=== PATIENT | female | born 1930 | race Caucasian/White ===

== ENCOUNTER 2018-08-11 10:00 | Emergency (ER) | payer MEDICARE ==
--- OUTSIDE RECORDS SUMMARY | 2018-08-11 10:44 | XMS REPORT ---
:1930 External Reference #:[id number] Author Organization [employer] Address [address] [place] [address] Phone [phone] Care Team Providers Name Role Phone Basilia Vega MD Primary Care Physician Unavailable Payers Type Date Identification Numbers Payment Provider Subscriber Medicare Primary Effective: Policy Number: Medicare Elizabeth Rodriguez 1995 [id number] PayID: [id number] [facility] [address] [place] [address] Problems Description No Information Family History Date Family Member(s) Problem(s) Comments Father due to Cancer () Onset: (age 57 Years) Father Cancer : (age 65 Years) Mother due to Pulmonary Embolism (PE) Siblings None Social History Type Date Description Comments Marital Status Lives With Alone Cigarette Use Former Cigarette Smoker 5-10 Cigarettes Daily ETOH Use Denies alcohol use Smoking Patient is a former smoker Quit 1979 Recreational Drug Use Denies Drug Use Daily Caffeine Consumes on average 12oz of iced tea per day Exercise Type/Frequency Does not exercise Allergies, Adverse Reactions, Alerts Date Description Reaction Status Severity Comments 06/14/2018 Sulfa Antibiotics active Medications Medication Date Status Form Strength Qnty SIG Indications Ordering Provider Midodrine HCL / Active Tablets 5mg 1 by Unknown 0000 mouth once times a day Simvastatin / Active Tablets 20mg 1 by Unknown 0000 mouth every day Metoprolol Succinate / Active Tablets 25mg 1 by Unknown ER 0000 ER 24HR mouth every day Hydrochlorothiazide / Active Tablets 25mg 1 by Unknown 0000 mouth every day Aspirin Low Dose / Active Tablets 81mg [address] mouth every day 1000 Unit / Active Tablets 400Unit 1 tab Unknown 0000 by mouth daily Adeds / Active Soft Gels 1 by Unknown 0000 mouth every day twice daily Vital Signs Date Vital Result Comment 07/13/2018 Height 63 inches 5'3" Weight 186.00 lb with shoes on Heart Rate 96 /min BP Systolic 120 mmHg BP Diastolic 60 mmHg BMI (Body Mass Index) 32.9 kg/m2 Ejection Fraction 55% Echocardiogram 01/23/2018 Results Description No Information Procedures Date CPT Code Description Status 07/13/2018 29164 EKG Tracing & Interpretation Completed Plan of Care 07/13/2018 - Carmen Delarosa M.D.I25.10 [facility]scl heart disease of [place] coronary artery w/o ang pctrsFollow up:one yr ovE78.4 Other 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
--- OUTSIDE RECORDS SUMMARY | 2018-08-11 10:44 | XMS REPORT | Continuity of Care Document ---
:1930 External Reference #:[id number] Author Name Lincoln Goetz M.D. Address [address] [place] [address] Care Team Providers Name Role Phone Basilia Vega M.D. Primary Care Physician Unavailable Payers Type Date Identification Numbers Payment Provider Subscriber Policy Number: [id number] Medicare - [facility] Elizabeth Rodriguez PayID: [id number] [address] [place] [address] Policy Number: [id number] [facility] Elizabeth Rodriguez PayID: [id number] [address] [place] [address] Advance Directives Description No Information Available Problems Date Description Provider Status Onset: Carcinoma of breast Active Family History Date Family Member(s) Problem(s) Comments Father Breast Cancer Mother Aneurysm Social History Type Date Description Comments Sex Unknown Marital Status Legal 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 day Metoprolol 0 Active Tablets 25mg Unknown Tartrate 000 Simvastatin Active Tablets 20mg Unknown 000 Ciclopirox Active Cream 0.77% Unknown Olamine 000 Midodrine HCL Active Tablets 5mg Take 1 Unknown 000 Tablet By Mouth Every Day Vitamin D2 Active Tablets 400Unit Unknown 000 Aspirin Active Chewtabs 81mg Unknown 000 Immunizations Description No Information Available Vital Signs Description No Information Available Results Description No Information Available Procedures Date Code Description Status 03/30/2018 47024 New Patient Comprehensive Exam Completed Encounters Description No Information Available Plan of Treatment 08/04/2018 - Lincoln Goetz M.D.H26.493 Other secondary cataract, bilateralComments:Smoking can increase the risk of developing or worsening any eye related disease, as well as affect your overall health. If you are a smoker , we strongly recommend that you quit.If you are not a smoker, we strongly recommend that you do not start. There is clouding in the sac that holds your artificial lens in your right eye. When your vision bothers you, we will do a laser treatment here in the office to improve your vision. There is clouding in the sac that holds your artificial lens in your left eye. We will schedule you an appointment for the YAG Capsulotomy laser with Dr. Goetz. Please read the pamphlet that has been printed out for you. We recommend you bring someone to drive you home.Follow up:Schedule YAG [id number] Nonexudative age- related macular degeneration, bilateral, early dry stageComments:You have Macular Degeneration. Check your Amsler Grid, with each eye separately, and take the AREDS II formula vitamins. If you notice any changes in your vision, please call the office and schedule anappointment to see any of the doctors here.Z96.1 Presence of intraocular lensComments:The artificial lens implants in both eyes appear to be stable at this time.
[2018-08-11] MEDS ORDERED: methylPREDNISolone 125 MG* 2 ML VIAL IV ONE (11:11)
[2018-08-11] MEDS ORDERED: Famotidine IV* 10 MG/ML 2 ML (20 mg) IV SLOW PU ONE (11:11)
[2018-08-11] MEDS ORDERED: diPHENhydraMINE IV* 25 MG in NS 0.9% 50 ML* 50 ML IVPB ONE (11:11)
--- NOTE | 2018-08-11 11:13 | ED ---
Skin Complaint - HPI Summary HPI Summary: This patient is an 87 year old F presenting to [facility] accompanied by her daughter with a chief complaint of facial edema since 08/10/18 AM. She endorses chronic facial rash; she went to the digital media manager 08/09/18, who took 2x biopsies to r/o CA, and sx onset the next day. Pt also complains of tooth pain/ infection. She notes that yesterday sx included a more pronounced facial droop, but there is still droop present today. Pt rx ABx for dental sx. She denies DIAMOND, double vision, blurred vision, CP, and SOB. She endorses anxiety about her sx, and chronic right leg edema. Pt had her flu vaccine 08/09/18. - History of Current Complaint Chief Complaint: EDGeneral Time Seen by Provider: 08/11/18 10:28 Stated Complaint: FACIAL SWELLING POSSIBEL TOOTH INFECTION Hx Obtained From: Patient, Family/Resident Care Aide Onset/Duration: Started Days Ago, Still Present Skin Exposure Onset/Duration: Days Ago Timing: Constant Onset Severity: Mild Current Severity: Mild Pain Intensity: 0 Pain Scale Used: 0-10 Numeric Skin Location: Discrete, Face Character: Swelling Aggravating Symptom(s): Nothing Alleviating Symptom(s): Nothing Associated Signs & Symptoms: Rash - chronic facial rash Related History: Recent change in medication - ABx, Other: - biopsy of face 2 days ago - Allergy/Home Medications Allergies/Adverse Reactions: Allergies Allergy/AdvReac Type Severity Reaction Status Date / Time No Known Allergies Allergy Verified 08/11/18 10:29 Home Medications: Home Medications Aspirin 81 mg PO DAILY 08/11/18 [History Confirmed 08/11/18] Hydrochlorothiazide TAB* [Hydrodiuril TAB*] 25 mg PO DAILY 08/11/18 [History Confirmed 08/11/18] Metoprolol Tartrate 25 mg PO DAILY 08/11/18 [History Confirmed 08/11/18] Midodrine HCl 5 mg PO DAILY 08/11/18 [History Confirmed 08/11/18] Simvastatin 20 mg PO DAILY 08/11/18 [History Confirmed 08/11/18] Vit A/Vit C/Vit E/Zinc/Copper [Preservision Areds Softgel] 1 each PO DAILY 08/11 [History Confirmed 08/11/18] PMH/Surg Hx/FS Hx/Imm Hx Endocrine/Hematology History: Denies: Hx Sickle Cell Disease GI History: Denies: Hx Ileostomy History: Denies: Hx Dialysis Sensory History: Reports: Hx Cataracts, Hx Contacts or Glasses, Hx Macular Degeneration Denies: Hx Legally Blind, Hx Deafness Opthamlomology History: Reports: Hx Cataracts, Hx Contacts or Glasses, Hx Macular Degeneration Denies: Hx Legally Blind EENT History: Denies: Hx Deafness Neurological History: Denies: Hx Developmental Delay Psychiatric History: Denies: Hx Autism Infectious Disease History: No Infectious Disease History: Denies: Traveled Outside the [place] in Last 30 Days - Family History Known Family History: Negative: Blood Disorder - Social History Occupation: Retired Lives: With Family Alcohol Use: None Substance Use Type: Reports: None Smoking Status (MU): Former Smoker Review of Systems Negative: Fever, Chills Negative: Blurred Vision, Diplopia Positive: Dental Pain. Negative: Sore Throat, Ear Ache Negative: Chest Pain Negative: Shortness Of Breath Negative: Vomiting, Diarrhea Negative: dysuria, hematuria Positive: Edema - RLE, right face Positive: Rash - face Neurological: Other - NEGATIVE: Dizziness, lightheadedness Positive: Anxious All Other Systems Reviewed And Are Negative: No Physical Exam - Summary Physical Exam Summary: Appearance: Alert, conversive, nontoxic appearing Skin: Warm, dry, no mottling, no rashes, no contusions. Right sided face swelling, a few abrasions to cheeks bilaterally. HEENT: EOMI, PERRL, moist mucous membranes Neck: No masses on the neck, supple Respiratory: Clear to auscultation, breath sounds present, no rales, no rhonchi , no wheezes Cardiovascular: RRR, pulses are symmetrical in both lower and upper extremities Abdomen: Soft, non-tender Bowel Sounds: Present Musculoskeletal: No CVA tenderness, no obvious deformity, moving all extremities in a grossly normal manner, 1+ RLE pitting edema Neurological: A&Ox3, CN II-XII Intact, moving all extremities symmetrically Psychiatric: Normal affect and mood Triage Information Reviewed: Yes Vital Signs On Initial Exam: Initial Vitals Temp Pulse Resp BP Pulse Ox 98.7 F 91 18 127/64 98 08/11/18 10:08 08/11/18 10:08 08/11/18 10:08 08/11/18 10:08 08/11/18 10:08 Vital Signs Reviewed: Yes - Antoinette Coma Scale Best Eye Response: 4 - Spontaneous Best Motor Response: 6 - Obeys Commands Best Verbal Response: 5 - Oriented Coma Scale Total: 15 Diagnostics - Vital Signs Vital Signs Temp Pulse Resp BP Pulse Ox 08/11/18 10:08 98.7 F 91 18 127/64 98 - Laboratory Result Diagrams: 08/11/18 11:36 08/11/18 11:36 Lab Statement: Any lab studies that have been ordered have been reviewed, and results considered in the medical decision making process. - Radiology CXR Xray Interpretation: No Acute Changes Radiology Interpretation Completed By: Radiologist - Low lung volumes. No active cardiopulmonary disease. Dr. Mayberry has reviewed this report. - CT Brain CT Interpretation: No Acute Changes CT Interpretation Completed By: Radiologist - No acute intracraial mass or hemorrhage is noted. Dr. Mayberry has reviewed this report. Re-Evaluation - Re-Evaluation First Eval Re-Evaluation Time: 11:30 Change: Worse Comment: Per RN Soco, s/p benadryl and solu-medrol administration, pt became dizzy, started to have difficulty with speech. Instructed Soco to dim the lights in the pt room. Second Eval Re-Evaluation Time: 13:06 Change: Improved Comment: Facial swelling and droop significantly reduced; droop likely secondary to swelling. Course/Dx - Course Course Of Treatment: An 87-year-old F presents to the ED with a CC of facial swelling for 1 day. (+) chronic facial rash, right sided facial droop and edema , dental pain, anxiety. (-) CP, SOB, DIAMOND, blurred vision, double vision, urinary sx, dizziness, and lightheadedness. bilateral face biopsies 2 days ago by digital media manager to r/o CA, next day onset right sided facial swelling and facial droop. A CXR reveals low lung volumes but is otherwise (-). A CT brain was (-) . In the ED course, pt was given benadryl, pepcid, and solu-medrol. Pt labs show low RBC, high mono %, high glucose, low total bilirubin, high total protein. - Diagnoses Provider Diagnoses: Allergic reaction, Dental disease Discharge - Sign-Out/Discharge Documenting (check all that apply): Patient Departure - discharge - Discharge Plan Condition: Stable Disposition: HOME Prescriptions: Famotidine [Pepcid] 20 mg PO DAILY #14 tab MDD 1 predniSONE TAB* [Deltasone 20 MG TAB*] 60 mg PO DAILY #12 tab MDD 3 Patient Education Materials: Toothache (ED), General Allergic Reaction (ED) Referrals: Basilia Vega MD [Primary Care Provider] - Additional Instructions: Continue to take the clindamycin as previously instructed. take the prednisone , benadryl and pepcid as instructed. return if worse or any new symptoms. Follow up with your doctor by thursday. - Billing Disposition and Condition Condition: STABLE Disposition: Home - Attestation Statements Document Initiated by Jesica: Yes Documenting Scribe: Romain Rice Provider For Whom Jesica is Documenting (Include Credential): Dr. Laura Mayberry MD Scribe Attestation: Romain Fraire scribed for Dr. Laura Mayberry MD on 08/11/18 at 1902. Scribe Documentation Reviewed: Yes Provider Attestation: The documentation as recorded by the Romain pederson accurately reflects the service I personally performed and the decisions made by me, Dr. Laura Mayberry MD
[2018-08-11] MEDS ORDERED: diPHENhydraMINE IV* 50 MG/ML 1 ml VIAL (BENADRYL) IV ONE (11:23)
[2018-08-11 11:52] LABS: ABS Basophils 0 10^3/ul (0-0.2); ABS Eosinophils 0.1 10^3/ul (0-0.6); ABS Lymphocytes 1.6 10^3/ul (1.0-4.8); ABS Monocytes 0.5 10^3/ul (0-0.8); ABS Neutrophils 3.7 10^3/ul (1.5-7.7); ABS Nucleated RBC 0 10^3/ul; Eosinophil % 1.5 % (0-6); Hematocrit 36 % (35-47); Mean Corpuscular HGB Conc 33 g/dl (31-36); Mean Corpuscular Hemoglobin 30 pg (27-31); Mean Corpuscular Volume 91 fL (80-97); Mean Platelet Volume 8.2 um3 (7.4-10.4); Nucleated Red Blood Cells % 0; Platelet Count 199 10^3/ul (150-450); Red Blood Count 3.99 10^6/ul (4.00-5.40); Red Cell Distribution Width 13 % (10.5-15); White Blood Count 5.9 10^3/ul (3.5-10.8)
[2018-08-11 12:11] LABS: EGFR Non-African American 55.8 (>60)
--- NOTE | 2018-08-11 12:20 | RAD ---
Indication: Right-sided facial droop. CT of the brain performed without IV contrast. Ventricular structures are midline. No midline shift is noted. The extra-axial spaces are unremarkable. There is no evidence of intracranial mass or hemorrhage. No other high or low density lesions are identified. Mastoid air cells and paranasal sinuses are unremarkable. IMPRESSION: No intracranial mass or hemorrhage is noted.
--- NOTE | 2018-08-11 12:31 | RAD ---
HISTORY: cough COMPARISONS: None VIEWS: 2 : frontal AP view of the chest at 12:15 PM FINDINGS: LINES AND TUBES: None. CARDIOMEDIASTINAL SILHOUETTE: The cardiomediastinal silhouette is normal for portable technique. PLEURA: The costophrenic angles are sharp. No pleural abnormalities are noted. LUNG PARENCHYMA: The lung volumes are low. The lungs are clear accounting for the phase of respiration. ABDOMEN: The upper abdomen is clear. There is no subphrenic gas. BONES AND SOFT TISSUES: The patient is status post median sternotomy. IMPRESSION: LOW LUNG VOLUMES. NO ACTIVE CARDIOPULMONARY DISEASE.
[2018-08-11 14:18] VITALS: BP 146/93
== END 2018-08-11 14:20 | disposition home or self-care (01) ==
LOC: ED 10:00
DX: T78.40XA Allergy, unspecified, initial encounter (principal); X58.XXXA Exposure to other specified factors, initial encounter; R21 Rash and other nonspecific skin eruption; K05.6 Periodontal disease, unspecified; Z79.82 Long term (current) use of aspirin; Z87.891 Personal history of nicotine dependence
CPT/HCPCS: 36415; 70450; 71045; 80053; 85025; 96374; 96375; 99284; J1200; J2930

== ENCOUNTER 2019-01-09 11:39 | Inpatient (IN) | payer MEDICARE, MEDICAID ==
[2019-01-09] MEDS ORDERED: NS 0.9% 1000 ML** 1,000 ML IV ONE (13:38)
[2019-01-09] MEDS ORDERED: Diltiazem IV* 5 MG/ML 5 ML VIAL (for loading dose/IV Push) (25 MG) IV SLOW PU ONE (13:38)
[2019-01-09] MEDS ORDERED: Furosemide IV* 10 MG/ML 10 ML VIAL (100 MG) IV ONE (13:49)
--- NOTE | 2019-01-09 13:52 | ED ---
HPI Cardiac - HPI Summary HPI Summary: Patient is an 88 y/o female who presents to the ED c/o LE edema. For the past 10 days, patient c/o sore throat, SOB, LE edema, and generalized weakness. These symptoms have been constant. Patient denies any fever or pain. She is a patient of Dr. Delarosa. PMHx HTN, CT, triple bypass. Patient takes daily ASA. - History of Current Complaint Chief Complaint: EDGeneral Stated Complaint: TROUBLE BREATHING, DOESNT FEEL GOOD PER PT DAUGHTE Time Seen by Provider: 01/09/19 13:40 Hx Obtained From: Patient, Family/Manager Ct - Daughter Onset/Duration: Started Days Ago - 10, Still Present Timing: Constant Current Severity: None Pain Intensity: 0 Pain Scale Used: 0-10 Numeric Aggravating Factor(s): Nothing Alleviating Factor(s): Nothing Associated Signs and Symptoms: Positive: Weakness, Shortness of Breath, Edema - Allergy/Home Medications Allergies/Adverse Reactions: Allergies Allergy/AdvReac Type Severity Reaction Status Date / Time No Known Allergies Allergy Verified 01/09/19 11:59 PMH/Surg Hx/FS Hx/Imm Hx Endocrine/Hematology History: Denies: Hx Sickle Cell Disease Cardiovascular History: Reports: Hx Hypertension, Hx Myocardial Infarction - 1991 GI History: Denies: Hx Ileostomy History: Denies: Hx Dialysis Sensory History: Reports: Hx Cataracts, Hx Contacts or Glasses, Hx Macular Degeneration Denies: Hx Legally Blind, Hx Deafness Opthamlomology History: Reports: Hx Cataracts, Hx Contacts or Glasses, Hx Macular Degeneration Denies: Hx Legally Blind Neurological History: Denies: Hx Developmental Delay Psychiatric History: Denies: Hx Autism - Cancer History Cancer Type, Location and Year: breast cancer - Surgical History Surgery Procedure, Year, and Place: left knee replacement, cholecystectomy, triple bypass Infectious Disease History: No Infectious Disease History: Denies: Traveled Outside the [place] in Last 30 Days - Family History Known Family History: Negative: Blood Disorder - Social History Alcohol Use: None Hx Substance Use: No Substance Use Type: Reports: None Hx Tobacco Use: Yes Smoking Status (MU): Former Smoker Review of Systems Negative: Fever Positive: Sore Throat Positive: Shortness Of Breath Positive: Edema - LE Positive: Weakness - generalized All Other Systems Reviewed And Are Negative: Yes Physical Exam - Summary Physical Exam Summary: Appearance: Well appearing, no pain distress Skin: warm, dry, reflects adequate perfusion Head/face: normal Eyes: EOMI, ROYAL ENT: mucous membranes moist Neck: supple, non-tender, left-sided JVD Respiratory: CTA, breath sounds present Cardiovascular: tachycardic with irregular rhythm, pulses symmetrical, 2+ pitting edema of LLE, 3+ pitting edema of RLE, sternotomy scar Abdomen: non-tender, soft Bowel Sounds: present Musculoskeletal: strength/ROM intact, significant kyphosis Neuro: normal, sensory motor intact, A&Ox3 Triage Information Reviewed: Yes Vital Signs On Initial Exam: Initial Vitals Temp Pulse Resp BP Pulse Ox 96.9 F 114 20 129/91 96 01/09/19 11:54 01/09/19 11:54 01/09/19 11:54 01/09/19 11:54 01/09/19 11:54 Vital Signs Reviewed: Yes Diagnostics - Vital Signs Vital Signs Temp Pulse Resp BP Pulse Ox 01/09/19 11:54 96.9 F 114 20 129/91 96 - Laboratory Result Diagrams: 01/09/19 13:59 01/09/19 13:59 Lab Statement: Any lab studies that have been ordered have been reviewed, and results considered in the medical decision making process. - Radiology CXR Radiology Interpretation Completed By: Radiologist Summary of Radiographic Findings: COPD. SMALL BILATERAL PLEURAL EFFUSIONS WITH BIBASILAR ATELECTASIS VERSUS CONSOLIDATION. ED physician reviewed radiology report. - EKG 13:33 Cardiac Rate: Other Rate - Rapid Afib - 113 bpm EKG Rhythm: Atrial Fibrillation ST Segment: Non-Specific Summary of EKG Findings: Nl axis Disposition - Course Course Of Treatment: Nurse's notes reviewed. Patient with a history of A. fib who has presented in rapid A. fib with increasing swelling her lower extremities. She also has bilateral pleural effusions consistent with CHF. This is supported by a BNP of greater than 600. She was diuresed here in was ordered diltiazem for rate control however her heart rate came down into the 80s and 90s spontaneously. She'll be admitted for further via the hospitalist service. - Differential Dx - Cardiopulmonary Differential Diagnoses - Cardiopulmonary: Atrial Fibrillation, Atrial Flutter, CAD, CHF, Exacerbation Of COPD, Influenza, Lower Resp Infection - Diagnoses Provider Diagnoses: Rapid atrial fibrillation, Acute CHF (congestive heart failure) - Physician Notifications Discussed Care Of Patient With: Irene Mays Time Discussed With Above Provider: 14:37 Instructed by Provider To: Admit As Inpatient Discharge - Sign-Out/Discharge Documenting (check all that apply): Patient Departure - Admit Patient Received Moderate/Deep Sedation with Procedure: No - Discharge Plan Condition: Fair Disposition: ADMITTED TO [facility] Referrals: Basilia Vega MD [Primary Care Provider] - - Billing Disposition and Condition Condition: FAIR Disposition: Admitted to [facility] - Attestation Statements Document Initiated by Scribe: Yes Documenting Scribe: Shalini Angelo Provider For Whom Scribe is Documenting (Include Credential): Sumit Penaloza MD Scribe Attestation: Shalini Fraire scribed for Sumit Penaloza MD on 01/09/19 at 1532. Scribe Documentation Reviewed: Yes Provider Attestation: The documentation as recorded by the Shalini pederson accurately reflects the service I personally performed and the decisions made by Sumit pemberton MD Status of Scribe Document: Viewed
[2019-01-09 14:08] LABS: ABS Basophils 0.1 10^3/ul (0-0.2); ABS Eosinophils 0 10^3/ul (0-0.6); ABS Lymphocytes 1.6 10^3/ul (1.0-4.8); ABS Monocytes 0.4 10^3/ul (0-0.8); ABS Neutrophils 3.3 10^3/ul (1.5-7.7); ABS Nucleated RBC 0 10^3/ul; Eosinophil % 0.8 %; Hematocrit 38 % (33-41); Hemoglobin 12.2 g/dL (12.0-16.0); Lymphocyte % 29.4 %; Mean Corpuscular HGB Conc 33 g/dL (31-36); Mean Corpuscular Hemoglobin 29 pg (27-31); Mean Corpuscular Volume 89 fL (80-97); Mean Platelet Volume 9.1 fL (7.4-10.4); Nucleated Red Blood Cells % 0.1; Platelet Count 202 10^3/uL (150-450); Red Cell Distribution Width 14 % (10.5-15); White Blood Count 5.4 10^3/uL (3.5-10.8)
[2019-01-09 14:24] LABS: Albumin 4.3 g/dL (3.2-5.2); Albumin/Globulin Ratio 2.2 (1-3); BUN/Creatinine Ratio 19.8 (8-20); C Reactive Protein 1.41 mg/L (<8.01); Calcium 9.6 mg/dL (8.6-10.3); EGFR African American 53.5 (>60); EGFR Non-African American 44.2 (>60); Potassium 3.7 mmol/L (3.5-5.0); Total Bilirubin 1.4 mg/dL (0.2-1.0); Total Protein 6.3 g/dL (6.4-8.9)
[2019-01-09 14:26] LABS: Troponin I 0.01 ng/mL (<0.04)
[2019-01-09 14:27] LABS: Influenza A Molecular NEGATIVE (Negative); Influenza B Molecular NEGATIVE (Negative)
[2019-01-09 15:45] LABS: Magnesium 2.2 mg/dL (1.9-2.7)
[2019-01-09] MEDS ORDERED: Acetaminophen TAB* 325 MG PO PRN (16:06)
[2019-01-09] MEDS ORDERED: Al Hydrox/Mg Hydrox/Simet LIQ* 30 ML UDC PO PRN (16:06)
[2019-01-09] MEDS ORDERED: Magnesium Hydroxide LIQ* 30 ML UDC PO PRN (16:06)
[2019-01-09 16:43] LABS: Urine Appearance Clear; Urine Bilirubin Negative (Negative); Urine Blood Negative (Negative); Urine Color Yellow; Urine Glucose Negative (Negative); Urine Ketones Trace (Negative); Urine Nitrite Negative (Negative); Urine Protein Negative (Negative); Urine Specific Gravity 1.015 (1.010-1.030); Urine Urobilinogen Positive (Negative)
[2019-01-09] MEDS ORDERED: Cholecalciferol TAB* 1000 UNITS PO SCH (20:00)
--- NOTE | 2019-01-09 20:55 | HP ---
CC: Dr. Basilia Vega; Dr. Delarosa * HISTORY AND PHYSICAL: DATE OF ADMISSION: 01/09/19 PRIMARY CARE PROVIDER: Dr. Basilia Vega. OUTPATIENT PINNER PRINTED CIRCUIT BOARDS: Dr. Delarosa. ATTENDING PHYSICIAN: Irene Mays MD * (dictated by Roman Munoz NP) CHIEF COMPLAINT: 1. Generalized weakness. 2. Shortness of breath. HISTORY OF PRESENT ILLNESS: Ms. Rodriguez is an 88-year-old female with a past medical history significant for hypertension, MS in 1991, triple bypass in 1991 , atrial fibrillation x1 episode in the postoperative period, orthostatic hypotension, prediabetes; who presented to the emergency room today with complaints of difficulty breathing, shortness of breath, generalized weakness for approximately 10 days. She reports approximately 10 days ago, she had a sore throat, shortness of breath, increased lower extremity edema, and generalized weakness. She and her daughter reports that Thursday after taking a trip to see a ledger clerk, she felt "wiped out" but did not hurt anywhere, at which point she became increasingly short of breath. The patient reports she found it difficult to talk as this would increase shortness of breath. In addition, any movement would increase shortness of breath. These symptoms have increased since Thursday; therefore, she presented to the emergency room today. She does report an increase in shortness of breath when lying flat. She reports that last night around 0300, she woke up short of breath and when she sat up, she felt better. The patient denies any chest pain, palpitations, fevers, nausea, vomiting, abdominal pain, sensory loss or focal weakness. While in the emergency room, the patient was noted to be in rapid atrial fibrillation. She also had a chest x-ray, which revealed bilateral pleural effusions. She had a BNP greater than 600, which supported congestive heart failure. She was diuresed in the emergency room with 40 mg IV Lasix. She was ordered diltiazem for rate control, but was not given this as she spontaneously went down to rate of 88 to 92 without the administration of diltiazem. Given the patient's progressive weakness, shortness of breath, and acute exacerbation of CHF, the hospitalist team was asked to evaluate for admission. PAST MEDICAL HISTORY: 1. Hypertension. 2. MS in 1991. 3. Triple bypass in 1991. 4. Atrial fibrillation in the postoperative period. 5. Orthostatic hypotension. 6. Prediabetes. 7. Breast cancer. 8. Skin cancer. 9. Macular degeneration. PAST SURGICAL HISTORY: 1. Total knee replacement. 2. Triple bypass in 1991. 3. Lumpectomy. HOME MEDICATIONS: 1. Metoprolol 25 mg p.o. daily. 2. Simvastatin 10 mg p.o. daily. 3. Vitamin D2 1.25 mg once a week. 4. Aspirin 81 mg. 5. Midodrine 5 mg p.o. daily. 6. PreserVision AREDS 2 one tab p.o. daily. 7. Hydrochlorothiazide 40 mg p.o. daily. ALLERGIES: SULFA. FAMILY HISTORY: Mother due to pulmonary embolism. Father due to cancer. Maternal grandfather due to CAD. SOCIAL HISTORY: The patient is a previous smoker, she quit in 1979. The patient denies alcohol use. The patient denies drug use. The patient is retired. The patient lives alone. The patient's daughter, Sydnie Low is very active in patient's care and helps to care for her at home. The patient also has nursing services. The patient ambulates with a walker at home. The patient's surrogate decision maker will be the patient's daughter, Sydnie Low in the event she is unable to make her decisions. Ms. Low's cellphone is [phone]. Her home phone is [phone]. REVIEW OF SYSTEMS: A 14-point review of systems was performed and all pertinent positives and negatives were in the HPI. All other systems were negative. PHYSICAL EXAMINATION GENERAL: Ms. Rodriguez is an 88-year-old female who is well developed, is well nourished, slightly obese, who is sitting in bed. Appears in no acute distress. Appears stated age. VITAL SIGNS: Temp 96.9, HR 103, RR 18, O2 saturation 92% on room air, BP 107/ 73. HEENT: EOMs intact. PERRLA. Oral mucosa is moist without lesion. Posterior pharynx is clear. NECK: Full range of motion. No lymphadenopathy. RESPIRATORY: Symmetrical chest expansion. No accessory muscle use. Scant crackles in bilateral bases. Otherwise, lungs are clear to auscultation. No rhonchi, wheezes, or rubs. CV: Irregular rhythm. S1, S2 present. No murmurs, rubs, or gallops. No JVD. ABDOMEN: Soft, nontender to palpation. Bowel sounds normoactive. EXTREMITIES: Skin is warm and smooth bilaterally. The patient has +1 edema on right. The patient has trace to +1 edema on left. No clubbing, cyanosis. Pedal pulses 2+ bilaterally. MUSCULOSKELETAL: Full range of motion. No pain or deformities. NEURO: Awake, alert, oriented x4. Moves all extremities. Motor strength is 5/ 5 in the upper and lower extremities bilaterally. SKIN: The patient has some redness in bilateral groins. Otherwise, skin is grossly intact. DIAGNOSTIC STUDIES/LAB DATA: WBC 4.5, hemoglobin 12.2, hematocrit 38, platelets 202. Sodium 140, potassium 3.7, chloride 105, carbon dioxide 27, BUN 23, creatinine is 1.16, glucose 111, magnesium 2.2. Total bilirubin 1.40. BNP is . Troponin is 0.01. ASSESSMENT AND PLAN: Ms. Rodriguez is an 88-year-old female with a past medical history significant for hypertension, MS, triple bypass, postoperative atrial fibrillation, orthostatic hypotension, prediabetes; who presented to the emergency department with complaints of shortness of breath and weakness, and was found to be in acute exacerbation of congestive heart failure in addition to rapid atrial fibrillation. The patient will be admitted for observation. 1. Rapid atrial fibrillation: As mentioned in the HPI, the patient was in rapid atrial fibrillation on her presentation to the emergency room, but spontaneously converted to rate control. The patient will be placed on telemetry. The patient will continue her metoprolol. If the patient is noted to be in rapid atrial fibrillation again, we will consider diltiazem 10 mg IV. The patient has CHADS-VASc score of 5. Given her age, congestive heart failure , history of hypertension, we will discuss with the patient and her caregivers risks versus benefits of starting anticoagulation. 2. Congestive heart failure: The patient is in acute exacerbation of congestive heart failure given her elevated BNP of 681, chest x-ray that is consistent with congestive heart failure. The patient received 40 mg IV Lasix here in the emergency department. The patient admits that she is supposed to be taking 40 mg p.o. Lasix daily, but she often only takes 20 and/or skips doses as if inconvenient. I will hold the patient's p.o. Lasix at this time. We will give her another dose of 40 tomorrow and reassess. In addition, the patient will have an echocardiogram tomorrow. The patient will also be placed on strict I and O's. The patient will also do daily weights. 3. Hypertension: The patient is on metoprolol 25 mg p.o. daily. This will be continued. This will also help with the patient's rate control. If the patient needs further rate control, we should consider increasing this dose. 4. History of myocardial infarction in 1991: We will continue the patient's aspirin. The patient is not having any chest pain. She denies chest pain with exertion. The patient's initial troponin was 0.01. I will repeat this for a total of 3 draws, given the patient woke up in the middle of night short of breath. 5. History of triple bypass: As mentioned above, the patient is not having any chest pain. We will continue the patient's aspirin. We will also continue the patient's simvastatin. 6. History of atrial fibrillation in the postoperative period: The atrial fibrillation episode the patient presented with today is obviously recurrent as she has had in the past. Please see #1 atrial fibrillation for plans. 7. Orthostatic hypotension: The patient has a history of hypertension and orthostatic hypotension and she is treated for both. Given the patient's current status, I am going to hold her midodrine and get orthostatic blood pressure in the morning. 8. Prediabetes: The patient reports she has diagnosis of prediabetes. She reports she was once on metformin, but no longer needed as she had good numbers. I will add on a hemoglobin A1c. 9. Breast cancer: The patient should follow up with her primary care as needed. 10. Skin cancer: The patient has a small patch that is currently being treated by ledger clerk on her left cheek. 11. Macular degeneration: The patient will be continued on her AREDS PreserVision. 12. FEN: The patient does not appear dry and she is actually in a congestive heart failure exacerbation. I will not order any IV fluids at this time. The patient will be provided with a consistent carb diet. 13. Code status: The patient is a full code. 14. DVT prophylaxis: The patient is high risk. She will be placed on subcu heparin 5000 units q.8 hours. 15. Disposition: The patient is stable. She will be admitted to the telemetry floor for further observation and treatment with plan for hopefully discharge in 1 to 2 days. 16. Surrogate decision maker: As mentioned above, Sydnie Low is the patient's daughter and her surrogate decision maker. Numbers elicited above. TIME SPENT: Approximately 60 minutes were spent on this admission, greater than half the time was spent [id number] with the patient and caregivers obtaining my history and performing my physical exam and reviewing my plan of care. The case has been reviewed with my attending, Dr. Mays, who agrees with my plan. ROMAN MUNOZ, L[place] [id number]/[facility] #: [id number] AMEENA
[2019-01-09] MEDS: Aspirin 81 mg CHEW TAB* 81 MG TAB.CHEW PO SCH (21:28)
[2019-01-09] MEDS: Atorvastatin* 10 MG TAB PO SCH (21:28)
[2019-01-09] MEDS: Heparin VIAL(*) 5000 UNITS/ML VIAL (FIVE THOUSAND) SUBCUT SCH (21:29)
[2019-01-09] MEDS: Cholecalciferol TAB* 1000 UNITS PO SCH (21:29)
[2019-01-09] MEDS: Metoprolol Tartrate TAB* 25 MG PO SCH (21:31)
[2019-01-10] MEDS: Heparin VIAL(*) 5000 UNITS/ML VIAL (FIVE THOUSAND) SUBCUT SCH (05:15)
[2019-01-10 05:35] LABS: ABS Basophils 0.1 10^3/ul (0-0.2); ABS Eosinophils 0.1 10^3/ul (0-0.6); ABS Lymphocytes 1.4 10^3/ul (1.0-4.8); ABS Monocytes 0.4 10^3/ul (0-0.8); ABS Neutrophils 2.3 10^3/ul (1.5-7.7); ABS Nucleated RBC 0 10^3/ul; Eosinophil % 3.1 %; Hematocrit 36 % (33-41); Hemoglobin 11.6 g/dL (12.0-16.0); Mean Corpuscular HGB Conc 32 g/dL (31-36); Mean Corpuscular Hemoglobin 29 pg (27-31); Mean Corpuscular Volume 90 fL (80-97); Mean Platelet Volume 8.9 fL (7.4-10.4); Nucleated Red Blood Cells % 0.1; Platelet Count 169 10^3/uL (150-450); Red Cell Distribution Width 14 % (10.5-15); White Blood Count 4.3 10^3/uL (3.5-10.8)
[2019-01-10 05:54] LABS: Albumin 3.7 g/dL (3.2-5.2); Calcium 9.1 mg/dL (8.6-10.3); Potassium 3.3 mmol/L (3.5-5.0); Total Bilirubin 1.3 mg/dL (0.2-1.0)
[2019-01-10 06:00] LABS: Albumin/Globulin Ratio 2.1 (1-3); BUN/Creatinine Ratio 18.1 (8-20); EGFR African American 48.2 (>60); EGFR Non-African American 39.8 (>60); Globulin 1.8 g/dL (2-4); Total Protein 5.5 g/dL (6.4-8.9)
[2019-01-10] MEDS ORDERED: Aspirin 81 mg CHEW TAB* 81 MG TAB.CHEW PO SCH (09:00)
[2019-01-10] MEDS ORDERED: Furosemide IV* 10 MG/ML VIAL (40 MG) IV ONE (09:00)
[2019-01-10] MEDS ORDERED: Atorvastatin* 10 MG TAB PO SCH (09:00)
[2019-01-10] MEDS ORDERED: Metoprolol Tartrate TAB* 25 MG PO SCH (09:00)
[2019-01-10] MEDS ORDERED: Cholecalciferol TAB* 1000 UNITS PO SCH (09:00)
[2019-01-10] MEDS ORDERED: Multivitamins/Minerals TAB PO SCH (09:00)
--- NOTE | 2019-01-10 09:26 | ECHO ---
Patient: AJ MENA [facility] Rec#: [id number] : 1930 Date: 01/10/2019 Age: 88y Height: 160 cm / 63.0 in Weight: 84 kg / 185.1 lbs Sex: F BSA: 1.87 Room#: 433 Admit Date#: 01/09/2019 Type: Inpatient Referring: Cindy Mobley Reading: Slade Roberts MD Dietary Aid: Danielle Akins RDCS,RDMS CC: Basilia Vega MD Transthoracic Echocardiogram Indication: CHF BP: 112/87 HR: 83 Rhythm: A-Fib Findings History: CAD, DE, CABG, HTN, AFIB, breast cancer Technical Comments: The study quality is fair. Left Ventricle: The left ventricular chamber size is normal. Mild concentric left ventricular hypertrophy is observed. Mild global hypokinesis of the left ventricle is observed. There is mildly decreased left ventricular systolic function. The estimated ejection fraction is 45-50%. The assessment of diastolic function is non-diagnostic. Left Atrium: The left atrium is moderate to severely dilated. Right Ventricle: The right ventricle is mild to moderately dilated. The right ventricular global systolic function is low normal. Right Atrium: The right atrium is mild to moderately dilated. Aortic Valve: The aortic valve is trileaflet. The aortic valve leaflets are mildly thickened. There is aortic annular calcification. There is a trace of aortic regurgitation. There is no evidence of aortic stenosis. Mitral Valve: The mitral valve leaflets appear normal. There is trace to mild mitral regurgitation. There is no evidence of mitral stenosis. Tricuspid Valve: The tricuspid valve leaflets are normal. There is moderate tricuspid regurgitation. The right ventricular systolic pressure is estimated to be 35-40 mmHg. There is evidence of mild pulmonary hypertension. Pulmonic Valve: The pulmonic valve structure is not well visualized. There is a trace pulmonic regurgitation. Pericardium: There is no significant pericardial effusion. Aorta: The aortic root appears normal. There is no dilatation of the aortic arch. Pulmonary Artery: The main pulmonary artery is not well visualized. Venous: The inferior vena cava is dilated. There is less than 50% respiratory change in the inferior vena cava dimension. Summary: There was not any prior study for comparison. Conclusions Mild concentric left ventricular hypertrophy is observed. There is mildly decreased left ventricular systolic function. The estimated ejection fraction is 45-50%. There is a trace of aortic regurgitation. There is trace to mild mitral regurgitation. There is moderate to severe tricuspid regurgitation. There is moderate tricuspid regurgitation. The right ventricular systolic pressure is estimated to be 35-40 mmHg. There is no significant pericardial effusion. Measurements Name Value Normal Range RVIDd (AP) 2D 3.5 cm (0.9 - 2.6) RVDdMajor (2D) 3.2 cm (2.2 - 4.4) RAd ISD 4CH 5.6 cm (3.4 - 4.9) RA (A4C)W 4.2 cm (2.9 - 4.6) IVSd (2D) 1.2 cm (0.6 - 1) LVPWd (2D) 1.1 cm (0.6 - 1) LVIDd (2D) 4.1 cm (3.6 - 5.4) LVIDs (2D) 3.3 cm - LV FS (2D) 20 % (25 - 45) Aortic Annulus 2 cm (1.4 - 2.6) Ao root diameter (2D) 3.5 cm (2.1 - 3.5) Ascending Ao 3 cm (2.1 - 3.4) Aortic arch 2.9 cm (1.8 - 3.4) LA dimension (AP) 2D 4.2 cm (2.3 - 3.8) LAd ISD 4CH 7 cm (2.9 - 5.3) LA ISD 4CH W 5.2 cm (2.5 - 4.5) Name Value Normal Range LA ESV BP (A/L) index 47 ml/m2 - Name Value Normal Range MV E-wave Vmax 0.7 m/sec - MV deceleration time 107 msec - LV lateral e' Vmax 0.05 m/sec - LV E:e' lateral ratio 13.5 ratio - Name Value Normal Range AV Vmax 0.9 m/sec - AV peak gradient 3.2 mmHg - LVOT Vmax 0.6 m/sec - LVOT peak gradient 1.4 mmHg - Name Value Normal Range TR Vmax 2.3 m/sec - TR peak gradient 21 mmHg - RAP 8 mmHg - RVSP 29 mmHg - IVC diameter 2.7 cm -
[2019-01-10] MEDS: Potassium Chlor TAB* 20 MEQ TAB.ER PO SCH ×3 (10:16→14:15)
--- NOTE | 2019-01-10 12:03 | PN ---
Subjective Date of Service: 01/10/19 Interval History: Discussed with pt and daughter, and pt sould like to start Eliquis for stroke prevention for AF. She has a HAS-BLED score of 2 and CHADS-VASc score of 5. Currently, pt denies CP and states that she does not feel palpitations when she goes into AF. She states that she still has SOB, but that it is improving. She is sleeping and eating well and has no difficulty sleeping while laying on her side. Objective Active Medications: Acetaminophen (Tylenol Tab*) 650 mg PO Q4H PRN Al Hydrox/Mg Hydrox/Simethicone (Maalox Plus*) 30 ml PO Q6H PRN Aspirin (Aspirin 81 Mg Chew Tab*) 81 mg PO BEDTIME JUDY Atorvastatin Calcium (Lipitor*) 10 mg PO BEDTIME JUDY Cholecalciferol (Vitamin D Tab*) 1,000 units PO BEDTIME JUDY Magnesium Hydroxide (Milk Of Magnesia Liq*) 30 ml PO Q4H PRN Metoprolol Tartrate (Lopressor Tab*) 25 mg PO BEDTIME JUDY Potassium Chloride (Klor Con Er Tab*) 20 meq PO Q2H JUDY Vital Signs: Temp Pulse Resp BP Pulse Ox 97.1 F 109 16 128/78 94 01/10/19 07:14 01/10/19 07:14 01/10/19 07:14 01/10/19 07:14 01/10/19 07:14 Oxygen Devices in Use Now: None Appearance: Pt is sitting up in chair. She is in no acute distress and appears well. Eyes: No Scleral Icterus, PERRLA Ears/Nose/Mouth/Throat: NL Teeth, Lips, Gums, Clear Oropharnyx, Mucous Membranes Moist Neck: NL Appearance and Movements; NL JVP, Trachea Midline Respiratory: Symmetrical Chest Expansion and Respiratory Effort - Without wheeze , rhonchi. Slight crackles at base of L lung Cardiovascular: NL Sounds; No Murmurs; No JVD - Irregular rhythm, rate controlled Abdominal: NL Sounds; No Tenderness; No Distention, No Hepatosplenomegaly Lymphatic: No Cervical Adenopathy Extremities: No Clubbing, Cyanosis, - - RLE edema 2+ pitting; LLE with trace edema Neurological: Alert and Oriented x 3 Result Diagrams: 01/10/19 05:17 01/10/19 05:16 Microbiology and Other Data: Microbiology 01/09/19 13:59 Influenza Types A,B Antigen - Final Nasal Specimen received for Influenza A/B Molecular testing Assess/Plan/Problems-Billing Assessment: Pt is an 88yof with PMHx HTN, [place] 1991, triple bypas 1991, post-op AF, orthostatic hypotension, pre-diabetes who present to ER with rapid AF and systolic HF exacerbation. - Patient Problems (1) Atrial fibrillation Comment: -Tele shows AF with rate control -Pt and daughter discussed and would like to start Eliquis tonight -Continue to monitor on tele (2) Acute exacerbation of congestive heart failure Comment: -Improving; crackles at L lung base -20 Lasix tomorrow, then reasses (3) Hypokalemia Comment: -K 3.3 -Potassium 20 mEq PO q2h x3 doses -Recheck in a.m. (4) Pre-diabetes Comment: -HA1c is 6.2 -Continue to monitor (5) DVT prophylaxis Comment: -D/c Heparin; start Eliquis tonight (6) Full code status Status and Disposition: Currently obs pt; will transfer to inpatient for additional Lasix and need for electrolyte repletion. Discharge when stable, likely tomorrow.
[2019-01-10] MEDS: Apixaban* 5 MG TAB PO SCH (19:42)
[2019-01-10] MEDS: Aspirin 81 mg CHEW TAB* 81 MG TAB.CHEW PO SCH (19:43)
[2019-01-10] MEDS: Cholecalciferol TAB* 1000 UNITS PO SCH (19:43)
[2019-01-10] MEDS: Atorvastatin* 10 MG TAB PO SCH (19:43)
[2019-01-10] MEDS: Metoprolol Tartrate TAB* 25 MG PO SCH (19:57)
[2019-01-11 05:30] LABS: ABS Basophils 0 10^3/ul (0-0.2); ABS Eosinophils 0.1 10^3/ul (0-0.6); ABS Monocytes 0.5 10^3/ul (0-0.8); ABS Neutrophils 2.5 10^3/ul (1.5-7.7); ABS Nucleated RBC 0 10^3/ul; Eosinophil % 2.2 %; Hematocrit 36 % (33-41); Hemoglobin 11.8 g/dL (12.0-16.0); Lymphocyte % 38.4 %; Mean Corpuscular HGB Conc 33 g/dL (31-36); Mean Corpuscular Hemoglobin 29 pg (27-31); Mean Corpuscular Volume 89 fL (80-97); Mean Platelet Volume 8.8 fL (7.4-10.4); Nucleated Red Blood Cells % 0; Platelet Count 184 10^3/uL (150-450); Red Blood Count 4.04 10^6 /uL (3.70-4.87); Red Cell Distribution Width 14 % (10.5-15); White Blood Count 5.1 10^3/uL (3.5-10.8)
[2019-01-11 05:48] LABS: BUN/Creatinine Ratio 25.9 (8-20); Calcium 9.4 mg/dL (8.6-10.3); EGFR African American 55.7 (>60); Potassium 3.8 mmol/L (3.5-5.0)
[2019-01-11] MEDS: Apixaban* 5 MG TAB PO SCH (08:55)
[2019-01-11] MEDS ORDERED: Furosemide IV* 10 MG/ML 2 ML VIAL (20 MG) IV ONE (09:00)
[2019-01-11 12:58] VITALS: BP 97/61
--- NOTE | 2019-01-11 20:32 | DS ---
DISCHARGE SUMMARY: DATE OF ADMISSION: 01/09/19 DATE OF DISCHARGE: 01/11/19 PRIMARY CARE PROVIDER: Basilia Vega MD SHOE TURNER: Carmen Delarosa MD ATTENDING PHYSICIAN: Dr. Irene Mays * (DICTATED BY ABDIAZIZ PIPER) PRIMARY DIAGNOSES: 1. Atrial fibrillation. 2. Congestive heart failure exacerbation. SECONDARY DIAGNOSES: 1. Hypertension. 2. Myocardial infarction, 1991. 3. Triple bypass, 1991. 4. Postoperative atrial fibrillation. 5. Orthostatic hypotension. 6. Prediabetes. 7. Breast cancer. 8. Skin cancer. 9. Macular degeneration. STUDIES WHILE IN THE HOSPITAL: Echocardiogram 01/09/19, conclusion: Mild concentric left ventricular hypertrophy is observed. There is mildly decreased left ventricular systolic function. The estimated ejection fraction is 45% to 50%. There is a trace of aortic regurgitation. There is a trace of mild mitral regurgitation. There is moderate to severe tricuspid regurgitation. There is moderate tricuspid regurgitation. The right ventricular systolic pressure is estimated to be 35 to 40 mmHg. There is no significant pericardial effusion. DISCHARGE MEDICATIONS: Home medications: 1. Cholecalciferol 1000 units p.o. daily. 2. Aspirin 81 mg p.o. daily. 3. Metoprolol tartrate 25 mg p.o. daily. 4. Furosemide 40 mg p.o. daily. 5. PreserVision AREDS soft gel 1 p.o. daily. 6. Simvastatin 20 mg p.o. daily. 7. Midodrine HCL 5 mg p.o. daily. New home medication: Apixaban 5 mg p.o. b.i.d. HISTORY OF PRESENT ILLNESS/HOSPITAL COURSE: Ms. Rodriguez is an 88-year-old female with a past medical history as described above, who presented to the emergency room on 01/09/19 with complaints of 10 days of difficulty breathing, shortness of breath, and generalized weakness. She also states that she has had increased lower extremity edema. Along with these symptoms, she complained of paroxysmal nocturnal dyspnea and dyspnea on exertion that was progressive throughout the 10 days. The patient came to the emergency room and it was noted that she was in atrial fibrillation with rapid ventricular response. Chest x-ray revealed bilateral pleural effusions with an elevated BNP which both support the diagnosis of congestive heart failure exacerbation. Throughout the patient's stay, she was given intravenous Lasix for the treatment of both pleural effusions and lower extremity edema. At the time of discharge, the patient was noted to have improved breathing and improved capacity for walking. She reports that she feels that she is back to her baseline. She no longer has crackles at the bases of her lungs. The lower extremity swelling remains, although this is significantly decreased from admission. Throughout the patient's stay, she was being monitored via telemetry. Throughout her stay, she was noted to be in atrial fibrillation with rate control. A discussion was had with her and her daughter about starting anticoagulation as she had a CHADS-VASc score of 5 and a HAS-BLED score of 2. They decided to start anticoagulation and the patient was placed on Eliquis which was started in the hospital. Of note is that the patient is still classified as prediabetic with an hemoglobin A1c of 6.2. At the time of discharge, the patient denies shortness of breath. She states that she does still have a decreased capacity for activity but that she is back to baseline. She denies cough or fever. She does complain of postnasal drainage and stuffiness, but is without fever or leukocytosis. She denies abdominal pain, nausea, vomiting, diarrhea, constipation or pain in the calves. The patient still has lower extremity edema , but it has improved significantly since admission. Mr. Rodriguez is stable for discharge. PHYSICAL EXAMINATION: Vital Signs: Temperature 97.5 temporally, heart rate 92 , respiratory rate 16, oxygen saturation 97% on room air, and blood pressure 97/ 61. DISCHARGE PLAN: Ms. Rodriguez will be discharged home. ACTIVITY: As tolerated. DIET: Heart healthy. MEDICATIONS: As above. EDUCATION: 1. Follow up with Dr. Delarosa on 01/21/19 at 9:40 a.m. at [facility]. 2. Follow up with primary care provider on as scheduled. Discussed recent hospitalization and elevated hemoglobin A1c. 3. Visiting nurse services set up. They will call to set up timing and further details. 4. Consider Saline nasal spray p.r.n. for congestion and postnasal drainage. 5. Continue medications as prescribed including Lasix 40 daily. 6. Continue apixaban twice daily starting tonight. 7. Return to the ER or nearest hospital if you experience any worsening of symptoms, shortness of breath, lightheadedness, dizziness, chest discomfort, high fevers, chills, night sweats, loss of consciousness, or any other worrisome signs or symptoms. This is a summarized report of a complex medical history and hospital stay. For further details, please see the entire medical record. TIME SPENT: Approximately 40 minutes was spent on this discharge, greater than half that time was spent [id number] with the patient and her daughter discussing discharge plans and instructions. ABDIAZIZ PIPER [id number]/[facility] #: [id number] AMEENA
== END 2019-01-11 13:51 | disposition home health service (06) | DRG 308 ==
LOC: ED 11:39 → MEDTELE 16:06 → OBSVTOIN 01-10 16:51
PROVIDERS: ADMIT Internal Medicine; ATTEND Internal Medicine
DX: I48.91 Unspecified atrial fibrillation (principal); I50.21 Acute systolic (congestive) heart failure; I25.10 Atherosclerotic heart disease of native coronary artery without angina pectoris; I11.0 Hypertensive heart disease with heart failure; I95.1 Orthostatic hypotension; R73.03 Prediabetes; H35.30 Unspecified macular degeneration; C44.309 Unspecified malignant neoplasm of skin of other parts of face; E87.6 Hypokalemia; I07.1 Rheumatic tricuspid insufficiency; Z96.659 Presence of unspecified artificial knee joint; Z79.82 Long term (current) use of aspirin; I25.2 Old myocardial infarction; Z85.3 Personal history of malignant neoplasm of breast; Z95.1 Presence of aortocoronary bypass graft; Z79.899 Other long term (current) drug therapy; Z88.2 Allergy status to sulfonamides; Z82.49 Family history of ischemic heart disease and other diseases of the circulatory system; Z80.9 Family history of malignant neoplasm, unspecified; Z87.891 Personal history of nicotine dependence
CPT/HCPCS: 36415; 71046; 80048; 80053; 81003; 83036; 83735; 83880; 84443; 84484; 85025; 86140; 87040; 93005; 93306; 99283; A9270-GY; G0378; G8978-GP-CK; G8979-GP-CI; J1644; J1940

== ENCOUNTER 2019-03-17 07:05 | Emergency (ER) | payer MEDICARE, MEDICAID ==
--- NOTE | 2019-03-17 07:23 | ED ---
GI/ HPI - HPI Summary HPI Summary: This patient is a 88 year old female presenting to [facility] with a chief complaint of hematuria 30 mins ago. The patient states she woke up this morning when she noticed the blood in the toilet bowl. The patient's daughter states it looked bright red. The patient was recently put on Eliquis two months ago and is worried she might have a bleeding disorder. She was recently seen by her PCP for excessive bruising. The patient states she is not in any pain. Pt denies any fever, chills, erythema of eyes, sore throat, CP, SOB, cough, abdominal pain , N/V, dysuria, myalgia, edema, rash, back pain or dizziness. She denies an Hx of kidney stones. Aspirin 81 mg PO DAILY 08/11/18 [History Confirmed 01/09/19] Metoprolol Tartrate 25 mg PO DAILY 08/11/18 [History Confirmed 01/09/19] Midodrine HCl 5 mg PO DAILY 08/11/18 [History Confirmed 01/09/19] Simvastatin 20 mg PO DAILY 08/11/18 [History Confirmed 01/09/19] Vit A/Vit C/Vit E/Zinc/Copper [Preservision Areds Softgel] 1 each PO DAILY 08/11 [History Confirmed 01/09/19] Furosemide TAB* [Lasix TAB*] 40 mg PO DAILY 09/16/18 [History Confirmed 01/09/19 ] Cholecalciferol TAB* [Vitamin D TAB*] 1,000 unit PO DAILY 01/09/19 [History Confirmed 01/09/19] Apixaban* [Eliquis*] 5 mg PO BID #30 tab 01/11/19 [Rx] - History of Current Complaint Chief Complaint: EDBleedingDisorder Time Seen by Provider: 03/17/19 07:11 Stated Complaint: BLOOD IN URINE PER PT'S DAUGHTER Hx Obtained From: Patient Onset/Duration: Started Minutes Ago Pain Intensity: 0 Associated Signs and Symptoms: Positive: Hematuria - Additional Pertinent History Primary Care Physician: [id number] - Allergy/Home Medications Allergies/Adverse Reactions: Allergies Allergy/AdvReac Type Severity Reaction Status Date / Time No Known Allergies Allergy Verified 03/17/19 07:10 Home Medications: Home Medications Potassium Chloride [Klor-Con M10] 10 mg PO DAILY 03/17/19 [History Confirmed ] PMH/Surg Hx/FS Hx/Imm Hx Endocrine/Hematology History: Denies: Hx Sickle Cell Disease Cardiovascular History: Reports: Hx Cardiac Arrest, Hx Congestive Heart Failure , Hx Coronary Artery Disease, Hx Hypertension, Hx Myocardial Infarction - 1991 GI History: Denies: Hx Ileostomy History: Denies: Hx Dialysis Musculoskeletal History: Reports: Hx Arthritis - R knee dt OA Sensory History: Reports: Hx Cataracts, Hx Contacts or Glasses, Hx Macular Degeneration Denies: Hx Legally Blind, Hx Deafness, Hx Hearing Aid Opthamlomology History: Reports: Hx Cataracts, Hx Contacts or Glasses, Hx Macular Degeneration Denies: Hx Legally Blind Neurological History: Denies: Hx Developmental Delay Psychiatric History: Denies: Hx Autism - Cancer History Cancer Type, Location and Year: breast cancer - Surgical History Surgery Procedure, Year, and Place: left knee replacement, cholecystectomy, triple bypass Infectious Disease History: No Infectious Disease History: Denies: Traveled Outside the [place] in Last 30 Days - Family History Known Family History: Negative: Blood Disorder - Social History Alcohol Use: None Hx Substance Use: No Substance Use Type: Reports: None Hx Tobacco Use: Yes Smoking Status (MU): Former Smoker Review of Systems Negative: Fever, Chills Negative: Erythema Negative: Sore Throat Negative: Chest Pain Negative: Shortness Of Breath, Cough Negative: Abdominal Pain, Vomiting, Nausea Positive: hematuria Positive: Other - Denies back pain. Negative: Myalgia, Edema Positive: Bruising. Negative: Rash Neurological: Other - Neg: Dizziness All Other Systems Reviewed And Are Negative: No Physical Exam - Summary Physical Exam Summary: Constitutional: Well-developed, Well-nourished, Alert. (-) Distressed Skin: Warm, Dry HENT: Normocephalic; Atraumatic Eyes: Conjunctiva normal Neck: Musculoskeletal ROM normal neck. (-) JVD, (-) Stridor, (-) Tracheal deviation Cardio: Regular rhythm, rate normal, Heart sounds normal; Intact distal pulses; The pedal pulses are 2+ and symmetric. Radial pulses are 2+ and symmetric. (-) Murmur Pulmonary/Chest wall: Effort normal. (-) Respiratory distress, (-) Wheezes, (-) Rales Abd: Soft, (-) tenderness, (-) Distension, (-) Guarding, (-) Rebound Musculoskeletal: (-) Edema Lymph: (-) Cervical adenopathy Neuro: Alert, Oriented x3 Psych: Mood and affect Normal Triage Information Reviewed: Yes Vital Signs On Initial Exam: Initial Vitals Temp Pulse Resp BP Pulse Ox 97.3 F 71 18 132/88 98 03/17/19 07:06 03/17/19 07:06 03/17/19 07:06 03/17/19 07:06 03/17/19 07:06 Vital Signs Reviewed: Yes Diagnostics - Vital Signs Vital Signs Temp Pulse Resp BP Pulse Ox 03/17/19 07:06 97.3 F 71 18 132/88 98 - Laboratory Result Diagrams: 03/17/19 07:56 03/17/19 07:56 Lab Statement: Any lab studies that have been ordered have been reviewed, and results considered in the medical decision making process. - CT Abd/Pel CT Interpretation Completed By: Radiologist Summary of CT Findings: 1. Small to moderate size right pleural effusion and trace left pleural effusion. 2. 4 mm calculus in the right renal pelvis. 3. Large hiatal hernia. 4. Status Post Cholecystectomy. ED Provider has reviewed this report. GIGU Course/Dx - Course Course Of Treatment: This patient is a 88 year old female presenting to [facility] with a chief complaint of hematuria 30 mins ago. Differential Dx include UTI, adverse effect of anticoagulation, hemastatic cystitis malignancy. No signs or symptoms of urethral colic. Patient's urine is dark red with no clots. CT abd/ pel was remarkable for 4 mm calculus in the right renal pelvis. Given urology follow up for further signs and symptoms of hematuria. Cystoctopy as needed. She will be prescribed Bactrim in the event of hemorrhagic cystitis. Spoke to Dr. Delarosa, Cardiology, as well as the patient's Career And Transition Teacher and both suggested taking her off the Eloquist and continuing with baby aspirin. A plan for discharge was discussed with the patient and she was agreeable with this plan. - Diagnoses Provider Diagnoses: Kidney stones, Hematuria Discharge - Sign-Out/Discharge Documenting (check all that apply): Patient Departure - Discharge Patient Received Moderate/Deep Sedation with Procedure: No - Discharge Plan Condition: Stable Disposition: HOME Prescriptions: Aspirin 81 mg PO DAILY #30 tab.chew Sulfamethox/Trimethoprim DS* [Bactrim DS 800/160 TAB*] 1 tab PO BID #10 tab Patient Education Materials: Kidney Stones (ED), Hematuria (ED) Referrals: Gino Bolton MD [Medical Doctor] - 2 Days Additional Instructions: Return to ED with any new or worsening symptoms. Discontinue the Eloquist until the kidney stone can be adequately managed. - Billing Disposition and Condition Condition: STABLE Disposition: Home - Attestation Statements Document Initiated by Scribe: Yes Documenting Scribe: Lavon Pool Provider For Whom Scribe is Documenting (Include Credential): Edward Gould MD Scribe Attestation: Lavon Fraire, scribed for Edward Gould MD on 03/17/19 at 1245. Scribe Documentation Reviewed: Yes Provider Attestation: The documentation as recorded by the Lavon pederson accurately reflects the service I personally performed and the decisions made by me, Edward Gould MD Status of Scribe Document: Viewed
[2019-03-17 08:02] LABS: Hematocrit 36 % (35-47); Hemoglobin 11.7 g/dL (12.0-16.0); Mean Corpuscular HGB Conc 32 g/dL (31-36); Mean Corpuscular Hemoglobin 28 pg (27-31); Mean Corpuscular Volume 88 fL (80-97); Mean Platelet Volume 8.5 fL (7.4-10.4); Platelet Count 192 10^3/uL (150-450); Red Blood Count 4.11 10^6 /uL (3.70-4.87); Red Cell Distribution Width 15 % (10.5-15); White Blood Count 4.8 10^3/uL (3.5-10.8)
[2019-03-17 08:11] LABS: Activated Partial Thrombo Time 38.9 seconds (26.0-36.3); INR 2.35 (0.82-1.09)
[2019-03-17 09:50] LABS: Urine Appearance Cloudy; Urine Bacteria Absent (Absent); Urine Color Red; Urine Red Blood Cell 3+(>10/hpf) (Absent); Urine Specific Gravity 1.023 (1.010-1.030); Urine White Blood Cell 2+(11-20/hpf) (Absent)
[2019-03-17 10:14] LABS: BUN/Creatinine Ratio 17.3 (8-20); EGFR African American 45.7 (>60); EGFR Non-African American 37.7 (>60)
[2019-03-17] MEDS ORDERED: Iodixanol* (CONTRAST) 320 MG/ML 100 ML SDV IV ONE (10:20)
[2019-03-17 10:32] LABS: Potassium 3.5 mmol/L (3.5-5.0)
[2019-03-17] MEDS ORDERED: NS 0.9% 1000 ML** 1,000 ML IV ONE (10:39)
[2019-03-17 12:00] VITALS: BP 135/72
== END 2019-03-17 12:03 | disposition home or self-care (01) ==
LOC: ED 07:05
DX: J90 Pleural effusion, not elsewhere classified (principal); K44.9 Diaphragmatic hernia without obstruction or gangrene; N20.0 Calculus of kidney; R31.9 Hematuria, unspecified; I11.0 Hypertensive heart disease with heart failure; I50.9 Heart failure, unspecified; I25.10 Atherosclerotic heart disease of native coronary artery without angina pectoris; I25.2 Old myocardial infarction; M17.11 Unilateral primary osteoarthritis, right knee; Z79.82 Long term (current) use of aspirin; Z79.899 Other long term (current) drug therapy; Z86.74 Personal history of sudden cardiac arrest; Z85.3 Personal history of malignant neoplasm of breast; Z95.1 Presence of aortocoronary bypass graft; Z87.891 Personal history of nicotine dependence; Z90.49 Acquired absence of other specified parts of digestive tract
CPT/HCPCS: 36415; 74177; 80048; 81003; 85027; 85610; 85730; 87086; 96360; 96361; 99283; Q9967

== ENCOUNTER 2019-05-13 14:40 | Emergency (ER) | payer MEDICARE, MEDICAID ==
--- NOTE | 2019-05-13 16:07 | ED ---
Head Injury - HPI Summary HPI Summary: An 88 y/o female brought in by [facility] ambulance accompanied by daughter presents to [facility] with a chief complaint of a fall in a parking lot today. She hit her head and c/o dizziness after the fall. She says that she had a mechanical fall with her walker. She denies any LOC and says that she remembers falling. She saw Dr. Sheehan today because she had a kidney stone. She is not on Eliquis now, but was on Eliquis beforehand. She denies any hip pain, back pain, abdominal pain, N/V. She has ecchymosis on her thoracic spine. - History Of Current Complaint Chief Complaint: EDHeadInjury Stated Complaint: FALL/VERTIGO PER EMS Time Seen by Provider: 05/13/19 15:54 Hx Obtained From: Patient, Family/Spiral Tube Winder Helper Mechanism Of Injury: Fall From A Standing Position Onset/Duration: Started Hours Ago, Still Present Onset of Pain: Post Accident, Prior to Arrival Severity Currently: Mild Severity Initially: Mild Pain Intensity: 2 Pain Scale Used: 0-10 Numeric Location: Diffuse Character: Unable to describe Aggravating Factor(s): Other: - nothing Alleviating Factor(s): Other: - nothing Associated Signs And Symptoms: Negative - LOC, hip or back pain, Bruising - Allergies/Home Medications Allergies/Adverse Reactions: Allergies Allergy/AdvReac Type Severity Reaction Status Date / Time No Known Allergies Allergy Verified 05/13/19 15:02 PMH/Surg Hx/FS Hx/Imm Hx Endocrine/Hematology History: Denies: Hx Sickle Cell Disease Cardiovascular History: Reports: Hx Cardiac Arrest, Hx Congestive Heart Failure , Hx Coronary Artery Disease, Hx Hypertension, Hx Myocardial Infarction - 1991 GI History: Denies: Hx Ileostomy History: Denies: Hx Dialysis Musculoskeletal History: Reports: Hx Arthritis - R knee dt OA Sensory History: Reports: Hx Cataracts, Hx Contacts or Glasses, Hx Macular Degeneration Denies: Hx Legally Blind, Hx Deafness, Hx Hearing Aid Opthamlomology History: Reports: Hx Cataracts, Hx Contacts or Glasses, Hx Macular Degeneration Denies: Hx Legally Blind Neurological History: Denies: Hx Developmental Delay Psychiatric History: Denies: Hx Autism - Cancer History Cancer Type, Location and Year: breast cancer - Surgical History Surgery Procedure, Year, and Place: left knee replacement, cholecystectomy, triple bypass Infectious Disease History: No Infectious Disease History: Denies: Traveled Outside the [place] in Last 30 Days - Family History Known Family History: Negative: Blood Disorder - Social History Alcohol Use: None Hx Substance Use: No Substance Use Type: Reports: None Hx Tobacco Use: Yes Smoking Status (MU): Former Smoker Review of Systems Negative: Fever Negative: Abdominal Pain, Vomiting, Nausea Positive: Other - negative: hip or back pain Positive: Bruising Neurological: Negative - LOC, Other - positive: hit head during fall, dizziness after fall All Other Systems Reviewed And Are Negative: Yes Physical Exam - Summary Physical Exam Summary: GENERAL: Patient is a well-developed and nourished F who is lying comfortable in the stretcher. Patient is not in any acute respiratory distress. HEAD AND FACE: Normocephalic EYES: PERRLA, EOMI x 2. EARS: Hearing grossly intact. MOUTH: Oropharynx within normal limits. NECK: Supple, trachea is midline, no adenopathy, no JVD, no carotid bruit. CHEST: Symmetric, no tenderness at palpation LUNGS: Clear to auscultation bilaterally. No wheezing or crackles. CVS: Regular rate and rhythm, S1 and S2 present, no murmurs or gallops appreciated. ABDOMEN: Soft, non-tender. Bowel sounds are normal. No abnormal abdominal pulsations. EXTREMITIES: ecchymosis over thoracic spine, TTP over thoracic spine. NEURO: Alert and oriented x 3. No acute neurological deficits. Speech is normal and follows commands. SKIN: Dry and warm Triage Information Reviewed: Yes Vital Signs On Initial Exam: Initial Vitals Temp Pulse Resp BP Pulse Ox 98.5 F 81 18 86/47 91 05/13/19 14:47 05/13/19 14:47 05/13/19 14:47 05/13/19 14:47 05/13/19 14:47 Vital Signs Reviewed: Yes - Antoinette Coma Scale Best Eye Response: 4 - Spontaneous Best Motor Response: 6 - Obeys Commands Best Verbal Response: 5 - Oriented Coma Scale Total: 15 Diagnostics - Vital Signs Vital Signs Temp Pulse Resp BP Pulse Ox 05/13/19 14:47 98.5 F 81 18 86/47 91 - Laboratory Lab Statement: Any lab studies that have been ordered have been reviewed, and results considered in the medical decision making process. - CT Thoracic spine CT Interpretation Completed By: Radiologist Summary of CT Findings: 1. 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 2. MULTIPLE CHRONIC DORSAL VERTEBRAL COMPRESSION FRACTURES. NO ACUTE FRACTURE IS SEEN. 3. LARGE POSTERIOR ENDPLATE SPUR AT THE T8-T9 LEVEL CAUSING SEVERE SPINAL CANAL NARROWING. AND SPINAL CORD COMPRESSION. 4. SMALL RIGHT PLEURAL EFFUSION. 5. LARGE HIATAL HERNIA. 6. NONOBSTRUCTING RIGHT RENAL CALCULUS. ED physician has reviewed this imaging report. Cervical spine CT Interpretation Completed By: Radiologist Summary of CT Findings: No CT evidence for traumatic cervical spine injury. ED physician has reviewed this imaging report. Brain CT Interpretation Completed By: Radiologist Summary of CT Findings: No traumatic brain injury evident. No acute intracranial process evident. Involutional change, stigmata of chronic small vessel ischemic disease, and chronic. bilateral cerebellar hemisphere lacunar infarcts. ED physician has reviewed this imaging report. Head Injury Course/Dx Course Of Treatment: An 88 y/o female brought in by [facility] ambulance accompanied by daughter presents to [facility] with a chief complaint of a fall in a parking lot today. The physical exam revealed ecchymosis over thoracic spine, TTP over thoracic spine. Thoracic spine CT impression: 1. 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 2. MULTIPLE CHRONIC DORSAL VERTEBRAL COMPRESSION FRACTURES. NO ACUTE FRACTURE IS SEEN. 3. LARGE POSTERIOR ENDPLATE SPUR AT THE T8-T9 LEVEL CAUSING SEVERE SPINAL CANAL NARROWING. AND SPINAL CORD COMPRESSION. 4. SMALL RIGHT PLEURAL EFFUSION. 5. LARGE HIATAL HERNIA. 6. NONOBSTRUCTING RIGHT RENAL CALCULUS. Cervical spine CT impression: No CT evidence for traumatic cervical spine injury. Brain CT impression: No traumatic brain injury evident. No acute intracranial process evident. Involutional change, stigmata of chronic small vessel ischemic disease, and chronic. bilateral cerebellar hemisphere lacunar infarcts. Dx: Chronic compression fracture of thoracic spine. Spinal stenosis. Mechanical fall. Case discussed with Dr. Dinero, neurosurgery, who recommended follow up as an outpatient. The patient will be discharged and was recommended to follow up with Dr. Calvo. I discussed results with patient, and she reports feeling better. She is hemodynamically stable and safe for discharge. Strict return precautions given and she will otherwise follow up with her PCP - Diagnoses Provider Diagnoses: Compression fx, thoracic spine, Spinal stenosis, Fall - Physician Notifications Discussed Care Of Patient With: Bruce Dinero Time Discussed With Above Provider: 17:38 Instructed by Provider To: Other - recommended follow-up as an outpatient Discharge - Sign-Out/Discharge Documenting (check all that apply): Patient Departure - DC Patient Received Moderate/Deep Sedation with Procedure: No - Discharge Plan Condition: Stable Disposition: HOME Patient Education Materials: Vertebral Compression Fracture (ED), Fall Prevention for Older Adults (ED) Referrals: Basilia Vega MD [Primary Care Provider] - Lilly Calvo MD [Medical Doctor] - Additional Instructions: Follow up with your primary care physician in 1-3 days. RETURN TO THE EMERGENCY DEPARTMENT FOR CHANGING OR WORSENING SYMPTOMS. - Billing Disposition and Condition Condition: STABLE Disposition: Home - Attestation Statements Document Initiated by Rajanibe: Yes Documenting Scribe: Daryl Sherwood Provider For Whom Jesica is Documenting (Include Credential): Praneeth Wren MD Scribe Attestation: Daryl Fraire scribed for Praneeth Wren MD on 05/14/19 at 1103. Scribe Documentation Reviewed: Yes Provider Attestation: The documentation as recorded by the Daryl pederson accurately reflects the service I personally performed and the decisions made by Sonya pemberton MD Status of Scribe Document: Viewed
[2019-05-13 18:15] VITALS: BP 117/72
== END 2019-05-13 18:13 | disposition home or self-care (01) ==
LOC: ED 14:40
DX: M48.54XA Collapsed vertebra, not elsewhere classified, thoracic region, initial encounter for fracture (principal); M48.04 Spinal stenosis, thoracic region; W19.XXXA Unspecified fall, initial encounter; Y92.481 Parking lot as the place of occurrence of the external cause; I50.9 Heart failure, unspecified; I25.10 Atherosclerotic heart disease of native coronary artery without angina pectoris; I11.0 Hypertensive heart disease with heart failure; Z86.74 Personal history of sudden cardiac arrest; I25.2 Old myocardial infarction; Z87.891 Personal history of nicotine dependence; M41.34 Thoracogenic scoliosis, thoracic region; M77.8 Other enthesopathies, not elsewhere classified; J90 Pleural effusion, not elsewhere classified; K44.9 Diaphragmatic hernia without obstruction or gangrene; N20.0 Calculus of kidney
CPT/HCPCS: 70450; 72125; 72128; 99282

== ENCOUNTER 2020-11-27 17:00 | Observation (INO) ==
[2020-11-27 17:42] LABS: ABS Basophils 0.1 10^3/ul (0-0.2); ABS Eosinophils 0.1 10^3/ul (0-0.6); ABS Lymphocytes 1.4 10^3/ul (1.0-4.8); ABS Monocytes 0.4 10^3/ul (0-0.8); ABS Neutrophils 3.3 10^3/ul (1.5-7.7); Eosinophil % 2.8 %; Hematocrit 38 % (35-47); Hemoglobin 12.5 g/dL (12.0-16.0); Lymphocyte % 26.3 %; Mean Corpuscular HGB Conc 33 g/dL (31-36); Mean Corpuscular Hemoglobin 31 pg (27-31); Mean Corpuscular Volume 94 fL (80-97); Nucleated Red Blood Cells % 0.1; Platelet Count 183 10^3/uL (150-450); Red Blood Count 3.99 10^6 /uL (3.70-4.87); Red Cell Distribution Width 14 % (10-15); White Blood Count 5.3 10^3/uL (3.5-10.8)
[2020-11-27 18:00] LABS: Albumin 3.9 g/dL (3.2-5.2); Calcium 8.7 mg/dL (8.6-10.3); EGFR African American 42.1 (>60); EGFR Non-African American 34.8 (>60); Magnesium 2.2 mg/dL (1.9-2.7); Total Protein 5.9 g/dL (6.4-8.9)
[2020-11-27 18:01] LABS: Troponin I 0.02 ng/mL (<0.03)
[2020-11-27 18:24] LABS: Potassium 3.8 mmol/L (3.5-5.0)
[2020-11-27] MEDS ORDERED: NS 0.9% 1000 ml BAG 500 ML IV ONE (18:25)
[2020-11-27 18:34] LABS: TSH Ultra Thyroid Stim Horm 1.05 mcIU/mL (0.34-5.60)
[2020-11-27 20:06] LABS: Urine Appearance Clear; Urine Bilirubin Negative (Negative); Urine Blood Negative (Negative); Urine Color Yellow; Urine Glucose Negative (Negative); Urine Ketones Negative (Negative); Urine Nitrite Negative (Negative); Urine Protein Negative (Negative); Urine Specific Gravity 1.014 (1.010-1.030); Urine Urobilinogen Negative (Negative)
[2020-11-27] MEDS ORDERED: Ondansetron 4 mg VIAL 2 MG/ML 2 ml VIAL IV PRN (23:37)
[2020-11-28 00:59] LABS: INR 1.49 (0.82-1.09)
[2020-11-28 01:19] LABS: Urine Creatinine Concentration 107.98 mg/dL
[2020-11-28] MEDS ORDERED: Heparin 5000 UNITS/ML 1 mL VIAL SUBCUT SCH (06:00)
[2020-11-28 06:52] LABS: ABS Eosinophils 0.1 10^3/ul (0-0.6); ABS Lymphocytes 1.4 10^3/ul (1.0-4.8); ABS Monocytes 0.4 10^3/ul (0-0.8); ABS Neutrophils 2.9 10^3/ul (1.5-7.7); Eosinophil % 2.6 %; Hematocrit 37 % (35-47); Hemoglobin 12.2 g/dL (12.0-16.0); Lymphocyte % 29.3 %; Mean Corpuscular HGB Conc 33 g/dL (31-36); Mean Corpuscular Hemoglobin 31 pg (27-31); Mean Corpuscular Volume 96 fL (80-97); Mean Platelet Volume 8.2 fL (7.4-10.4); Platelet Count 164 10^3/uL (150-450); Red Cell Distribution Width 15 % (10-15); White Blood Count 4.9 10^3/uL (3.5-10.8)
[2020-11-28 07:03] LABS: INR 1.35 (0.82-1.09)
[2020-11-28 07:12] LABS: BUN/Creatinine Ratio 21.3 (8-20); Calcium 8.6 mg/dL (8.6-10.3); EGFR African American 50.2 (>60); EGFR Non-African American 41.5 (>60); Potassium 3.8 mmol/L (3.5-5.0)
[2020-11-28] MEDS ORDERED: Cyanocobalamin INJ 1,000 MCG/ML VIAL 1 ML VIAL IM SCH (09:00)
[2020-11-28] MEDS: Aspirin EC 81 mg TAB.EC (enteric coated) PO SCH (09:05)
[2020-11-28] MEDS: Enoxaparin 40 MG/0.4 ML SYR SUBCUT SCH (20:20)
[2020-11-28] MEDS ORDERED: Enoxaparin 30 MG/0.3 ML SYR SUBCUT SCH (21:00)
[2020-11-29 07:01] LABS: BUN/Creatinine Ratio 19.6 (8-20); Calcium 8.7 mg/dL (8.6-10.3); EGFR African American 55.4 (>60); EGFR Non-African American 45.8 (>60); HDL Cholesterol 46.1 mg/dL; Potassium 3.8 mmol/L (3.5-5.0)
[2020-11-29] MEDS ORDERED: Potassium Chlor 10 meq TAB PO SCH (09:00)
[2020-11-29] MEDS: Aspirin EC 81 mg TAB.EC (enteric coated) PO SCH (10:04)
[2020-11-29] MEDS: Cyanocobalamin INJ 1,000 MCG/ML VIAL 1 ML VIAL IM SCH (10:05)
[2020-11-29] MEDS: Enoxaparin 40 MG/0.4 ML SYR SUBCUT SCH (20:50)
[2020-11-29] MEDS: Polyethylene Glycol 3350 17 GM PACKET PO SCH (21:29)
[2020-11-30] MEDS: Cyanocobalamin INJ 1,000 MCG/ML VIAL 1 ML VIAL IM SCH (09:11)
[2020-11-30] MEDS: Aspirin EC 81 mg TAB.EC (enteric coated) PO SCH (09:12)
[2020-11-30] MEDS: Polyethylene Glycol 3350 17 GM PACKET PO SCH (09:13)
[2020-11-30 11:40] VITALS: BP 130/67
== END 2020-11-30 12:20 ==
LOC: ED 17:00 → MEDTELE 17:00
PROVIDERS: ADMIT Internal Medicine; ATTEND Internal Medicine

== ENCOUNTER 2020-12-02 17:48 | Observation (INO) ==
[2020-12-02 18:25] LABS: ABS Basophils 0.1 10^3/ul (0-0.2); ABS Eosinophils 0.1 10^3/ul (0-0.6); ABS Lymphocytes 1.4 10^3/ul (1.0-4.8); ABS Monocytes 0.4 10^3/ul (0-0.8); ABS Neutrophils 2.9 10^3/ul (1.5-7.7); Eosinophil % 2.7 %; Hematocrit 42 % (35-47); Hemoglobin 14.3 g/dL (12.0-16.0); Lymphocyte % 28.8 %; Mean Corpuscular HGB Conc 34 g/dL (31-36); Mean Corpuscular Hemoglobin 32 pg (27-31); Mean Corpuscular Volume 94 fL (80-97); Mean Platelet Volume 8.7 fL (7.4-10.4); Platelet Count 202 10^3/uL (150-450); Red Blood Count 4.51 10^6 /uL (3.70-4.87); Red Cell Distribution Width 15 % (10-15); White Blood Count 4.9 10^3/uL (3.5-10.8)
[2020-12-02 18:42] LABS: ALT 23 U/L (7-52); AST 30 U/L (13-39); Albumin 4.5 g/dL (3.2-5.2); Albumin/Globulin Ratio 1.9 (1-3); Alkaline Phosphatase 113 U/L (34-104); Anion Gap 8 mmol/L (2-11); BUN/Creatinine Ratio 20.8 (8-20); Blood Urea Nitrogen 27 mg/dL (6-24); CO2 Carbon Dioxide 30 mmol/L (22-32); Calcium 9.7 mg/dL (8.6-10.3); Chloride 102 mmol/L (101-111); EGFR African American 46.7 (>60); EGFR Non-African American 38.6 (>60); Globulin 2.4 g/dL (2-4); Glucose 97 mg/dL (70-100); Potassium 3.8 mmol/L (3.5-5.0); Sodium 140 mmol/L (135-145); Total Protein 6.9 g/dL (6.4-8.9)
[2020-12-02 18:51] LABS: Troponin I 0.06 ng/mL (<0.03)
[2020-12-02] MEDS ORDERED: NS 0.9% 500 ml BAG 500 ML IV ONE (20:03)
[2020-12-02 21:41] LABS: Troponin I 0.05 ng/mL (<0.03)
[2020-12-02] MEDS: Enoxaparin 40 MG/0.4 ML SYR SUBCUT SCH (23:43)
[2020-12-03 01:52] LABS: Troponin I 0.05 ng/mL (<0.03)
[2020-12-03 07:49] LABS: BUN/Creatinine Ratio 19.9 (8-20); Calcium 9.2 mg/dL (8.6-10.3); EGFR African American 44.3 (>60); EGFR Non-African American 36.6 (>60); Potassium 3.4 mmol/L (3.5-5.0)
[2020-12-03] MEDS ORDERED: Potassium Chlor 20 meq TAB.ER PO ONE (08:29)
[2020-12-03] MEDS: Cholecalciferol (VIT D3) 1,000 unit TAB PO SCH (09:05)
[2020-12-03] MEDS: Aspirin EC 81 mg TAB.EC (enteric coated) PO SCH (09:05)
[2020-12-03] MEDS: Multivitamins/Minera Areds(NF) CAP PO SCH ×2 (09:06→21:39)
[2020-12-03] MEDS: Enoxaparin 40 MG/0.4 ML SYR SUBCUT SCH (21:43)
[2020-12-04 05:49] LABS: BUN/Creatinine Ratio 18.3 (8-20); Calcium 9.2 mg/dL (8.6-10.3); EGFR African American 48.4 (>60); Potassium 3.8 mmol/L (3.5-5.0)
[2020-12-04] MEDS ORDERED: Potassium Chlor 10 meq TAB PO SCH (09:00)
[2020-12-04] MEDS: Cholecalciferol (VIT D3) 1,000 unit TAB PO SCH (09:02)
[2020-12-04] MEDS: Aspirin EC 81 mg TAB.EC (enteric coated) PO SCH (09:02)
[2020-12-04] MEDS: Multivitamins/Minera Areds(NF) CAP PO SCH (09:03)
[2020-12-04] MEDS ORDERED: Polyethylene Glycol 3350 17 GM PACKET PO PRN (09:27)
[2020-12-04 11:44] VITALS: BP 113/57
== END 2020-12-04 13:56 ==
LOC: ED 17:48 → MEDTELE 17:48
PROVIDERS: ADMIT Internal Medicine; ATTEND Internal Medicine

== ENCOUNTER 2021-05-04 11:17 | Inpatient (IN) ==
[2021-05-04] MEDS ORDERED: NS 0.9% 1000 ml BAG 1,000 ML IV ONE (11:45)
[2021-05-04] MEDS ORDERED: Meropenem 1 GM PREMIX(*) 1 GM/50 ML BAG IV ONE (12:15)
[2021-05-04 12:28] LABS: ABS Basophils 0.1 10^3/ul (0-0.2); ABS Eosinophils 0.4 10^3/ul (0-0.6); ABS Lymphocytes 1.5 10^3/ul (1.0-4.8); ABS Monocytes 0.5 10^3/ul (0-0.8); Eosinophil % 8.2 %; Hematocrit 39 % (35-47); Hemoglobin 12.6 g/dL (12.0-16.0); Lymphocyte % 34.8 %; Mean Corpuscular HGB Conc 33 g/dL (31-36); Mean Corpuscular Hemoglobin 31 pg (27-31); Mean Corpuscular Volume 94 fL (80-97); Mean Platelet Volume 8.3 fL (7.4-10.4); Platelet Count 203 10^3/uL (150-450); Red Blood Count 4.11 10^6 /uL (3.70-4.87); Red Cell Distribution Width 15 % (10-15); White Blood Count 4.4 10^3/uL (3.5-10.8)
[2021-05-04 12:36] LABS: Albumin 3.8 g/dL (3.2-5.2); Albumin/Globulin Ratio 1.6 (1-3); EGFR African American 63.2 (>60); EGFR Non-African American 52.2 (>60); Globulin 2.4 g/dL (2-4); Potassium 3.8 mmol/L (3.5-5.0); Total Protein 6.2 g/dL (6.4-8.9)
[2021-05-04 14:23] LABS: Urine Appearance Cloudy; Urine Bilirubin Negative (Negative); Urine Blood 2+ (Negative); Urine Color Amber; Urine Glucose Negative (Negative); Urine Ketones Negative (Negative); Urine Nitrite Negative (Negative); Urine Protein 2+(100 mg/dL) (Negative); Urine Specific Gravity 1.023 (1.002-1.030); Urine Urobilinogen Positive (Negative)
[2021-05-04 14:29] LABS: Urine Bacteria Absent (Absent); Urine Red Blood Cell 3+(>10/hpf) (Absent); Urine Squamous Epithelial Cell Present (Absent); Urine White Blood Cell 1+(6-10/hpf) (Absent)
[2021-05-04] MEDS ORDERED: Magnesium Hydroxide LIQ 30 ML UDC PO PRN (16:05)
[2021-05-04] MEDS ORDERED: Meropenem 1 GM PREMIX(*) 1 GM/50 ML BAG IV SCH (17:00)
[2021-05-04] MEDS: Enoxaparin 40 MG/0.4 ML SYR SUBCUT SCH (18:20)
[2021-05-04] MEDS: Meropenem 1 GM PREMIX(*) 1 GM/50 ML BAG IV SCH (20:04)
[2021-05-05] MEDS: Meropenem 1 GM PREMIX(*) 1 GM/50 ML BAG IV SCH ×2 (04:51→13:08)
[2021-05-05 06:47] LABS: ABS Basophils 0.1 10^3/ul (0-0.2); ABS Eosinophils 0.3 10^3/ul (0-0.6); ABS Lymphocytes 1.1 10^3/ul (1.0-4.8); ABS Monocytes 0.5 10^3/ul (0-0.8); ABS Neutrophils 4.9 10^3/ul (1.5-7.7); Eosinophil % 4.3 %; Hematocrit 36 % (35-47); Lymphocyte % 15.9 %; Mean Corpuscular HGB Conc 34 g/dL (31-36); Mean Corpuscular Hemoglobin 31 pg (27-31); Mean Corpuscular Volume 93 fL (80-97); Mean Platelet Volume 8.4 fL (7.4-10.4); Platelet Count 191 10^3/uL (150-450); Red Blood Count 3.85 10^6 /uL (3.70-4.87); Red Cell Distribution Width 15 % (10-15); White Blood Count 6.8 10^3/uL (3.5-10.8)
[2021-05-05 07:01] LABS: EGFR African American 62.4 (>60); EGFR Non-African American 51.6 (>60); Potassium 3.5 mmol/L (3.5-5.0)
[2021-05-05] MEDS: Aspirin EC 81 mg TAB.EC (enteric coated) PO SCH (10:55)
[2021-05-05] MEDS: Enoxaparin 40 MG/0.4 ML SYR SUBCUT SCH (15:58)
[2021-05-06] MEDS ORDERED: Meropenem 1 GM PREMIX(*) 1 GM/50 ML BAG IV SCH (01:00)
[2021-05-06] MEDS ORDERED: Fosfomycin(NF) 3 GM PAK PO ONE (09:10)
[2021-05-06] MEDS: Aspirin EC 81 mg TAB.EC (enteric coated) PO SCH (10:00)
[2021-05-06 14:13] LABS: ABS Basophils 0.1 10^3/ul (0-0.2); ABS Eosinophils 0.2 10^3/ul (0-0.6); ABS Lymphocytes 1.5 10^3/ul (1.0-4.8); ABS Monocytes 0.5 10^3/ul (0-0.8); ABS Neutrophils 4.3 10^3/ul (1.5-7.7); Eosinophil % 3.5 %; Hematocrit 39 % (35-47); Hemoglobin 12.7 g/dL (12.0-16.0); Lymphocyte % 22.9 %; Mean Corpuscular HGB Conc 33 g/dL (31-36); Mean Corpuscular Hemoglobin 31 pg (27-31); Mean Corpuscular Volume 93 fL (80-97); Nucleated Red Blood Cells % 0.1; Platelet Count 213 10^3/uL (150-450); Red Blood Count 4.14 10^6 /uL (3.70-4.87); Red Cell Distribution Width 15 % (10-15); White Blood Count 6.6 10^3/uL (3.5-10.8)
[2021-05-06 14:31] LABS: Calcium 9.1 mg/dL (8.6-10.3); EGFR African American 59.7 (>60); EGFR Non-African American 49.3 (>60); Potassium 3.9 mmol/L (3.5-5.0)
[2021-05-06] MEDS: Enoxaparin 40 MG/0.4 ML SYR SUBCUT SCH (18:27)
[2021-05-07] MEDS: Aspirin EC 81 mg TAB.EC (enteric coated) PO SCH (09:42)
[2021-05-07 15:53] VITALS: BP 113/69
== END 2021-05-07 13:35 | DRG 690 ==
LOC: MED 11:17 → ED 11:17 → MED 16:55
PROVIDERS: ADMIT Internal Medicine; ATTEND Pediatrics

== ENCOUNTER 2021-07-01 21:20 | Inpatient (IN) ==
[2021-07-01] MEDS ORDERED: Lactated Ringers 1000 ml BAG IV.FLUID IV ONE (21:31)
[2021-07-01] MEDS ORDERED: Linezolid 600 MG IVPREMIX(*) 600 MG/300 ML BAG IVPB ONE (23:30)
[2021-07-02 00:04] LABS: ABS Eosinophils 0.1 10^3/ul (0-0.6); ABS Monocytes 0.5 10^3/ul (0-0.8); ABS Neutrophils 7.4 10^3/ul (1.5-7.7); Eosinophil % 1.4 %; Hematocrit 32 % (35-47); Hemoglobin 10.7 g/dL (12.0-16.0); Lymphocyte % 10.6 %; Mean Corpuscular HGB Conc 33 g/dL (31-36); Mean Corpuscular Hemoglobin 30 pg (27-31); Mean Corpuscular Volume 91 fL (80-97); Platelet Count 258 10^3/uL (150-450); Red Blood Count 3.55 10^6 /uL (3.70-4.87); Red Cell Distribution Width 14 % (10-15); White Blood Count 9.1 10^3/uL (3.5-10.8)
[2021-07-02 00:15] LABS: Activated Partial Thrombo Time 26.1 seconds (26.0-38.0); INR 1.53 (0.86-1.15)
[2021-07-02 00:27] LABS: ALT 21 U/L (7-52); AST 36 U/L (13-39); Albumin 2.9 g/dL (3.2-5.2); Albumin/Globulin Ratio 1.2 (1-3); Alkaline Phosphatase 93 U/L (35-149); Anion Gap 8 mmol/L (2-11); Blood Urea Nitrogen 23 mg/dL (6-24); C Reactive Protein 131.28 mg/L (<8.01); CO2 Carbon Dioxide 31 mmol/L (22-32); Calcium 8.5 mg/dL (8.6-10.3); Chloride 101 mmol/L (101-111); EGFR African American 47.9 (>60); EGFR Non-African American 39.6 (>60); Globulin 2.4 g/dL (2-4); Glucose 145 mg/dL (70-100); Potassium 3.1 mmol/L (3.5-5.0); Sodium 140 mmol/L (135-145); Total Protein 5.3 g/dL (6.4-8.9)
[2021-07-02 00:31] LABS: Troponin I 0.05 ng/mL (<0.03)
[2021-07-02 01:36] LABS: Urine Appearance Cloudy; Urine Bilirubin Negative (Negative); Urine Blood 3+ (Negative); Urine Color Amber; Urine Glucose Negative (Negative); Urine Ketones Negative (Negative); Urine Nitrite Negative (Negative); Urine Protein 2+(100 mg/dL) (Negative); Urine Specific Gravity 1.016 (1.002-1.030); Urine Urobilinogen Positive (Negative)
[2021-07-02 01:48] LABS: Urine Bacteria 1+ (Absent); Urine Red Blood Cell 3+(>10/hpf) (Absent); Urine Squamous Epithelial Cell Present (Absent); Urine White Blood Cell 3+(>20/hpf) (Absent)
[2021-07-02 01:50] LABS: Rapid COVID-19 Molecular Undetected (Undetected)
[2021-07-02] MEDS ORDERED: Magnesium Hydroxide LIQ 30 ML UDC PO PRN (02:36)
[2021-07-02] MEDS ORDERED: Lactated Ringers 1000 ml BAG 1,000 ML IV ONE (02:41)
[2021-07-02] MEDS ORDERED: Potassium Chlor 20 meq TAB.ER PO ONE (02:45)
[2021-07-02 03:26] LABS: Troponin I 0.05 ng/mL (<0.03)
[2021-07-02 03:59] LABS: % Iron Saturation 12 % (15-55); Iron 21 ug/dL (50-212); Total Iron Binding Capacity 182 mcg/dL (250-450); Transferrin 130 mg/dL (203-362); Unsaturated Iron Binding < 167 ug/dL
[2021-07-02 04:25] LABS: Vitamin B12 1277 pg/mL (180-914)
[2021-07-02] MEDS: Enoxaparin 40 MG/0.4 ML SYR SUBCUT SCH (04:27)
[2021-07-02] MEDS: KCL 20 MEQ/100 ML IVPREMIX 20 MEQ/100 ML BAG IV SCH ×2 (04:28→06:51)
[2021-07-02] MEDS ORDERED: Norepinephrine 16MCG/ML IVPRE 4,000 MCG/250 ML BAG IV SCH (05:00)
[2021-07-02 06:56] LABS: ABS Eosinophils 0.1 10^3/ul (0-0.6); ABS Lymphocytes 0.9 10^3/ul (1.0-4.8); ABS Monocytes 0.5 10^3/ul (0-0.8); ABS Neutrophils 6.6 10^3/ul (1.5-7.7); Eosinophil % 0.8 %; Hematocrit 27 % (35-47); Hemoglobin 9.3 g/dL (12.0-16.0); Lymphocyte % 11.6 %; Mean Corpuscular HGB Conc 34 g/dL (31-36); Mean Corpuscular Hemoglobin 31 pg (27-31); Mean Corpuscular Volume 90 fL (80-97); Platelet Count 224 10^3/uL (150-450); Red Blood Count 3.04 10^6 /uL (3.70-4.87); Red Cell Distribution Width 14 % (10-15); White Blood Count 8.2 10^3/uL (3.5-10.8)
[2021-07-02 07:16] LABS: Albumin 2.4 g/dL (3.2-5.2); Albumin/Globulin Ratio 1.1 (1-3); Calcium 7.7 mg/dL (8.6-10.3); EGFR African American 57.8 (>60); EGFR Non-African American 47.8 (>60); Globulin 2.1 g/dL (2-4); Potassium 3.5 mmol/L (3.5-5.0); Total Bilirubin 1.1 mg/dL (0.2-1.0); Total Protein 4.5 g/dL (6.4-8.9)
[2021-07-02] MEDS ORDERED: Piperacillin/Tazobac ADVAN 3.375 GM in NS 0.9% 100 ml BAG 100 ML IV ONE (07:28)
[2021-07-02] MEDS ORDERED: Zosyn per Pharmacy NOTE FOLLOW UP SCH (08:00)
[2021-07-02] MEDS ORDERED: Phenylephrine IV 50 MG in NS 0.9% 250 ml 245 ML IV SCH ×2 (08:00→13:00)
[2021-07-02] MEDS ORDERED: Digoxin IV 0.5 MG/2 ML AMP (0.25 MG/ML) IV SLOW PU ONE (08:25)
[2021-07-02] MEDS ORDERED: Magnesium Sulfate 2 gm BAG 2 GM/50 ML BAG IVPB ONE (08:26)
[2021-07-02] MEDS: Aspirin EC 81 mg TAB.EC (enteric coated) PO SCH (09:47)
[2021-07-02] MEDS: Linezolid 600 MG IVPREMIX(*) 600 MG/300 ML BAG IVPB SCH (11:57)
[2021-07-02] MEDS: ZOSYN 3.375 GM Q8H per EXTENDED INFUSION IV SCH ×2 (13:00→21:12)
[2021-07-03] MEDS: Linezolid 600 MG IVPREMIX(*) 600 MG/300 ML BAG IVPB SCH ×3 (00:21→23:21)
[2021-07-03] MEDS ORDERED: Phenylephrine IV 50 MG in NS 0.9% 250 ml 245 ML IV SCH (00:39)
[2021-07-03] MEDS: ZOSYN 3.375 GM Q8H per EXTENDED INFUSION IV SCH ×3 (04:23→19:20)
[2021-07-03 05:41] LABS: ABS Eosinophils 0.2 10^3/ul (0-0.6); ABS Lymphocytes 1.4 10^3/ul (1.0-4.8); ABS Monocytes 0.6 10^3/ul (0-0.8); ABS Neutrophils 9.2 10^3/ul (1.5-7.7); Eosinophil % 1.4 %; Hematocrit 31 % (35-47); Hemoglobin 10.1 g/dL (12.0-16.0); Lymphocyte % 12.3 %; Mean Corpuscular HGB Conc 33 g/dL (31-36); Mean Corpuscular Hemoglobin 30 pg (27-31); Mean Corpuscular Volume 91 fL (80-97); Mean Platelet Volume 7.2 fL (7.4-10.4); Platelet Count 288 10^3/uL (150-450); Red Blood Count 3.41 10^6 /uL (3.70-4.87); Red Cell Distribution Width 15 % (10-15); White Blood Count 11.4 10^3/uL (3.5-10.8)
[2021-07-03 06:05] LABS: C Reactive Protein 147.14 mg/L (<8.01); EGFR African American 63.9 (>60); EGFR Non-African American 52.8 (>60); Potassium 3.5 mmol/L (3.5-5.0)
[2021-07-03] MEDS: Aspirin EC 81 mg TAB.EC (enteric coated) PO SCH (07:32)
[2021-07-03] MEDS ORDERED: KCL 20 MEQ/100 ML IVPREMIX 20 MEQ/100 ML BAG IV ONE (07:36)
[2021-07-03] MEDS: Enoxaparin 40 MG/0.4 ML SYR SUBCUT SCH (08:20)
[2021-07-03] MEDS ORDERED: Lactated Ringers 1000 ml BAG 1,000 ML IV SCH (10:00)
[2021-07-03] MEDS: Morphine 2 MG/ML SYRINGE IV PRN ×2 (13:42→23:27)
[2021-07-03] MEDS ORDERED: Remdesivir 200 mg LOADING DOSE X1 IV ONE (17:15)
[2021-07-03] MEDS ORDERED: Remdesivir 100 mg Vial 200 MG in NS 0.9% 250 ml 210 ML IV ONE (20:00)
[2021-07-04] MEDS: ZOSYN 3.375 GM Q8H per EXTENDED INFUSION IV SCH ×3 (04:02→21:09)
[2021-07-04 04:19] LABS: ABS Basophils 0.1 10^3/ul (0-0.2); ABS Eosinophils 0.1 10^3/ul (0-0.6); ABS Lymphocytes 1.3 10^3/ul (1.0-4.8); ABS Monocytes 0.5 10^3/ul (0-0.8); ABS Neutrophils 6.8 10^3/ul (1.5-7.7); Eosinophil % 1.4 %; Hematocrit 29 % (35-47); Hemoglobin 9.6 g/dL (12.0-16.0); Mean Corpuscular HGB Conc 33 g/dL (31-36); Mean Corpuscular Hemoglobin 30 pg (27-31); Mean Corpuscular Volume 91 fL (80-97); Mean Platelet Volume 7.4 fL (7.4-10.4); Platelet Count 270 10^3/uL (150-450); Red Blood Count 3.19 10^6 /uL (3.70-4.87); Red Cell Distribution Width 15 % (10-15); White Blood Count 8.8 10^3/uL (3.5-10.8)
[2021-07-04 04:29] LABS: Calcium 7.7 mg/dL (8.6-10.3); EGFR African American 67.8 (>60); EGFR Non-African American 56.1 (>60); Phosphorus 2.2 mg/dL (2.5-5.0); Potassium 3.6 mmol/L (3.5-5.0)
[2021-07-04] MEDS ORDERED: Potassium Phosphate IV 15 MMOLE in NS 0.9% 250 ml 250 ML IVPB ONE (04:31)
[2021-07-04] MEDS ORDERED: Lactated Ringers 500 ml BAG 500 ML IV ONE (06:19)
[2021-07-04] MEDS: Aspirin EC 81 mg TAB.EC (enteric coated) PO SCH (08:48)
[2021-07-04] MEDS: Enoxaparin 40 MG/0.4 ML SYR SUBCUT SCH (08:48)
[2021-07-04] MEDS: Linezolid 600 MG IVPREMIX(*) 600 MG/300 ML BAG IVPB SCH (13:20)
[2021-07-04] MEDS: Morphine 2 MG/ML SYRINGE IV PRN (14:14)
[2021-07-04] MEDS: Remdesivir 100 mg Vial 100 MG in NS 0.9% 250 ml 230 ML IV SCH (21:09)
[2021-07-05] MEDS: cefTRIAXone 1 gm/50 mL NS BAG 1 GM/50 ML BAG IVPB SCH (04:18)
[2021-07-05] MEDS: Morphine 2 MG/ML SYRINGE IV PRN ×2 (05:19)
[2021-07-05 05:50] LABS: ABS Basophils 0.1 10^3/ul (0-0.2); ABS Eosinophils 0.1 10^3/ul (0-0.6); ABS Lymphocytes 1.3 10^3/ul (1.0-4.8); ABS Monocytes 0.4 10^3/ul (0-0.8); ABS Neutrophils 7.1 10^3/ul (1.5-7.7); Hematocrit 30 % (35-47); Hemoglobin 10.1 g/dL (12.0-16.0); Lymphocyte % 14.7 %; Mean Corpuscular HGB Conc 34 g/dL (31-36); Mean Corpuscular Hemoglobin 30 pg (27-31); Mean Corpuscular Volume 91 fL (80-97); Mean Platelet Volume 7.3 fL (7.4-10.4); Nucleated Red Blood Cells % 0.1; Platelet Count 295 10^3/uL (150-450); Red Blood Count 3.32 10^6 /uL (3.70-4.87); Red Cell Distribution Width 15 % (10-15)
[2021-07-05 06:14] LABS: Calcium 7.6 mg/dL (8.6-10.3); EGFR African American 62.4 (>60); EGFR Non-African American 51.6 (>60); Potassium 3.5 mmol/L (3.5-5.0)
[2021-07-05] MEDS ORDERED: KCL 20 MEQ/100 ML IVPREMIX 20 MEQ/100 ML BAG IV ONE (06:41)
[2021-07-05] MEDS ORDERED: KCL 10 MEQ/50 ML IVPREMIX 10 MEQ/50 ML BAG IV SCH (07:00)
[2021-07-05] MEDS: Enoxaparin 40 MG/0.4 ML SYR SUBCUT SCH (07:59)
[2021-07-05] MEDS: Aspirin EC 81 mg TAB.EC (enteric coated) PO SCH (08:00)
[2021-07-05] MEDS ORDERED: Hydrocortisone INJ 100 MG/2ML 2 ML VIAL IV ONE (09:41)
[2021-07-05] MEDS ORDERED: cefTRIAXone 1 gm/50 mL NS BAG 1 GM/50 ML BAG IVPB SCH (12:00)
[2021-07-05] MEDS: Hydrocortisone INJ 100 MG/2ML 2 ML VIAL IV SCH (18:09)
[2021-07-05] MEDS: Remdesivir 100 mg Vial 100 MG in NS 0.9% 250 ml 230 ML IV SCH (21:47)
[2021-07-06] MEDS: Hydrocortisone INJ 100 MG/2ML 2 ML VIAL IV SCH ×3 (01:40→18:26)
[2021-07-06] MEDS: Morphine 2 MG/ML SYRINGE IV PRN ×3 (01:40→21:07)
[2021-07-06] MEDS: cefTRIAXone 1 gm/50 mL NS BAG 1 GM/50 ML BAG IVPB SCH (04:39)
[2021-07-06 06:10] LABS: ABS Lymphocytes 0.7 10^3/ul (1.0-4.8); ABS Monocytes 0.1 10^3/ul (0-0.8); ABS Neutrophils 8.9 10^3/ul (1.5-7.7); Hematocrit 33 % (35-47); Hemoglobin 10.9 g/dL (12.0-16.0); Lymphocyte % 7.5 %; Mean Corpuscular HGB Conc 34 g/dL (31-36); Mean Corpuscular Hemoglobin 31 pg (27-31); Mean Corpuscular Volume 91 fL (80-97); Platelet Count 330 10^3/uL (150-450); Red Blood Count 3.58 10^6 /uL (3.70-4.87); Red Cell Distribution Width 15 % (10-15); White Blood Count 9.8 10^3/uL (3.5-10.8)
[2021-07-06 06:30] LABS: Calcium 7.9 mg/dL (8.6-10.3); EGFR African American 63.2 (>60); EGFR Non-African American 52.2 (>60)
[2021-07-06] MEDS: Enoxaparin 40 MG/0.4 ML SYR SUBCUT SCH (09:22)
[2021-07-06] MEDS: Remdesivir 100 mg Vial 100 MG in NS 0.9% 250 ml 230 ML IV SCH (23:55)
[2021-07-07] MEDS: Hydrocortisone INJ 100 MG/2ML 2 ML VIAL IV SCH (01:12)
[2021-07-07] MEDS ORDERED: Furosemide 20 mg/2 ml IV VIAL ONE (03:18)
[2021-07-07] MEDS ORDERED: Furosemide 20 mg/2 ml IV VIAL IV SLOW PU ONE (03:18)
[2021-07-07] MEDS: cefTRIAXone 1 gm/50 mL NS BAG 1 GM/50 ML BAG IVPB SCH (04:29)
[2021-07-07 05:09] LABS: ABS Basophils 0.2 10^3/ul (0-0.2); ABS Lymphocytes 0.7 10^3/ul (1.0-4.8); ABS Monocytes 0.5 10^3/ul (0-0.8); ABS Neutrophils 18.9 10^3/ul (1.5-7.7); Hematocrit 33 % (35-47); Hemoglobin 10.6 g/dL (12.0-16.0); Lymphocyte % 3.3 %; Mean Corpuscular HGB Conc 32 g/dL (31-36); Mean Corpuscular Hemoglobin 30 pg (27-31); Mean Corpuscular Volume 92 fL (80-97); Mean Platelet Volume 7.1 fL (7.4-10.4); Nucleated Red Blood Cells % 0.1; Platelet Count 343 10^3/uL (150-450); Red Blood Count 3.58 10^6 /uL (3.70-4.87); Red Cell Distribution Width 15 % (10-15); White Blood Count 20.3 10^3/uL (3.5-10.8)
[2021-07-07 05:28] LABS: Calcium 7.9 mg/dL (8.6-10.3); EGFR African American 47.1 (>60); EGFR Non-African American 38.9 (>60); Magnesium 2.2 mg/dL (1.9-2.7); Potassium 3.6 mmol/L (3.5-5.0)
[2021-07-07] MEDS: KCL 20 MEQ/100 ML IVPREMIX 20 MEQ/100 ML BAG IV SCH ×2 (06:15→08:44)
[2021-07-07] MEDS: Enoxaparin 40 MG/0.4 ML SYR SUBCUT SCH (08:47)
[2021-07-07] MEDS ORDERED: Hydrocortisone INJ 100 MG/2ML 2 ML VIAL IV SCH (09:00)
[2021-07-07 10:04] LABS: Venous Bicarbonate HCO3 24.8 mmol/L (24-28)
[2021-07-07 10:31] LABS: Troponin I 0.04 ng/mL (<0.03)
[2021-07-07] MEDS ORDERED: Digoxin IV 0.5 MG/2 ML AMP (0.25 MG/ML) IV SLOW PU ONE ×2 (10:47→11:34)
[2021-07-07] MEDS ORDERED: Piperacillin/Tazobac ADVAN 3.375 GM in NS 0.9% 100 ml BAG 100 ML IV SCH (11:00)
[2021-07-07] MEDS ORDERED: Metoprolol Tartrate 5 mg VIAL 5 ml VIAL (1 mg/ml) IV ONE (11:25)
[2021-07-07] MEDS: Morphine 2 MG/ML SYRINGE IV PRN ×4 (14:21→23:05)
[2021-07-07] MEDS ORDERED: Lorazepam PYXIS KEY PRN (18:26)
[2021-07-07] MEDS ORDERED: Morphine 2 MG/ML SYRINGE ONE (18:27)
[2021-07-08] MEDS: Morphine 2 MG/ML SYRINGE IV PRN ×2 (03:12→08:59)
[2021-07-08] MEDS: LORazepam 2 mg VIAL 1 ml IV PUSH PRN ×2 (03:13→08:58)
[2021-07-08 07:32] VITALS: BP 67/40
== END 2021-07-08 10:08 | disposition expired | DRG 871 ==
LOC: ED 21:20 → EDHOLD 07-02 02:27 → ICU 07-02 02:28
PROVIDERS: ADMIT Student in an Organized Health Care Education/Training Program; ATTEND Surgery Surgical Critical Care